=== PATIENT | female | born 1970 | race Caucasian/White ===

== ENCOUNTER 2016-12-28 12:05 | Emergency (ER) | payer OTHER ==
[2016-12-28 12:18] VITALS: BP 112/65
--- NOTE | 2016-12-28 14:55 | RAD ---
INDICATION: Back and left leg pain progressively worse. COMPARISON: There are no prior studies available for comparison. TECHNIQUE: 5 views of the lumbar spine were obtained including lateral, oblique, AP and a coned-down lateral view of the lumbar sacral junction. FINDINGS: The vertebra are in normal alignment. No fracture is seen. There is mild disc space narrowing and endplate spurring present at the L2-L3 and L3-L4 levels. There is a single surgical clip which projects over the pelvis on the right side. IMPRESSION: MILD DEGENERATIVE DISC DISEASE. IF THE PATIENT'S SYMPTOMS PERSIST CONSIDER MR IMAGING.
--- NOTE | 2017-01-18 12:57 | UC ---
Nando Mo Aidan, scribed for Yara Goff MD on 12/28/16 at 1408 . Back Pain HPI - HPI Summary HPI Summary: 46 y/o female presents to the Urgent Care with a complaint of Left posterior hip pain, radiating down back of left buttock and left leg. Worse stretching or bending over. No unexplained weakness, p/d. 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 Does c/o ongoing and recently progressively worse midlow and middle back pain. Has had pain since approx 14 yrs ago. Pt denies any urinary symptoms. No hematuria. No bowell issues. No sob / cp / palpitations. No fever / chills. - History of Current Complaint Chief Complaint: UCLowerExtremity Stated Complaint: LEG PAIN Hx Obtained From: Patient Hx Last Menstrual Period: 12/25/17 ?: No Onset/Duration: Sudden Onset, Lasting Days, Still Present Timing: Constant Severity Initially: Moderate Severity Currently: Moderate Pain Intensity: 7 Pain Scale Used: 0-10 Numeric Back Pain: Is Discrete @ - lower back and lower extremities bilaterally Character: Aching - constant "jose horse" Aggravating: Movement Alleviating: Nothing - unknown Associated Signs And Symptoms: Positive: Other - flare up of psoriasis, right flank pain Related History: Previous Back Injury - Pt has had chronic back pain for 14 years since she had her child - Risk Factors TAD Risk Factors: Smoking - former smoker - Allergies/Home Medications Allergies/Adverse Reactions: Allergies Allergy/AdvReac Type Severity Reaction Status Date / Time Iohexol Allergy Mild Itching Verified 04/05/16 19:44 PMH/Surg Hx/FS Hx/Imm Hx - Additional Past Medical History Additional PMH: Hx of chronic back pain Previously Healthy: No - see hpi - Surgical History Surgical History: Yes Surgery Procedure, Year, and Place: 2006- tubal ligation; Hernia repair; abdominal mesh repair - Family History Known Family History: Positive: Hypertension - Social History Occupation: Employed Full-time Lives: With Family Alcohol Use: Occasionally Substance Use Type: None Smoking Status (MU): Former Smoker Type: Cigarettes Length of Time of Smoking/Using Tobacco: quit 20 years ago Household Exposure Type: Cigarettes Review of Systems Constitutional: Negative Skin: Other - "flare-up" of psoriasis Eyes: Negative ENT: Negative Respiratory: Negative Cardiovascular: Negative Gastrointestinal: Negative Genitourinary: Negative Motor: Negative Neurovascular: Other - see hpi Musculoskeletal: Arthralgia - see hpi, Myalgia Neurological: Negative Psychological: Negative All Other Systems Reviewed And Are Negative: Yes Physical Exam Triage Information Reviewed: Yes Appearance: Well-Nourished Vital Signs: Initial Vital Signs Temp 98.6 F 12/28/16 12:14 Pulse 78 12/28/16 12:14 Resp 18 12/28/16 12:14 BP 112/65 12/28/16 12:14 Pulse Ox 98 12/28/16 12:14 Vital Signs Reviewed: Yes Eye Exam: Normal ENT Exam: Normal ENT: Positive: Normal ENT inspection Neck exam: Normal Neck: Positive: Supple Respiratory Exam: Normal, Other - regular rate, no dyspnea, no tachypnea Respiratory: Positive: Chest non-tender, Lungs clear, Normal breath sounds, No respiratory distress, No accessory muscle use Cardiovascular Exam: Normal, Other - normal rate, good general skin color, good capillary refill Cardiovascular: Positive: RRR, No Murmur, Pulses Normal, Brisk Capillary Refill Abdominal Exam: Normal Abdomen Description: Positive: Nontender, No Organomegaly, Soft Bowel Sounds: Positive: Present Musculoskeletal Exam: Normal Musculoskeletal: Positive: Strength Intact, Other: - diffuse low back tenderness , tender left buttock, nodules of the DIP Neurological Exam: Other - nonfocal, grossly intact Psychological Exam: Normal Skin Exam: Normal, Other - no visible or reported rash Back Pain Course/Dx - Course Course Of Treatment: Urine dip - nad. ucg - neg. Considered below diff dx's. S/sx c/w acute on chronic low back pain with Left sciatic sx. Plans to f/u with a new pcp, hopefully in the next few weeks. Nodules on fingers and flareup of psoriasis is concerning. She denies hx or direct fam hx of know autoimmune issues. She is aware of the importance of f/u pcp. Will seek medical attention for worse or new problems in the meantime. Reviewed xray report with pt.,. Questions answered as posed to the best of my ability. - Differential Dx/Diagnosis Provider Diagnoses: acute on chronic low back pain. Left sciatica. Psoriasis Discharge - Discharge Plan Condition: Stable Disposition: HOME Prescriptions: Cyclobenzaprine TAB* [Flexeril 10 MG TAB*] 10 mg PO BID PRN #30 tab PRN Reason: spasm Halobetasol Propionate [Ultravate] 0.05 % EX BID PRN #1 tube PRN Reason: Rash Naproxen TAB* [Naprosyn 250 mg TAB*] 500 mg PO Q12H PRN #40 tab PRN Reason: Pain Patient Education Materials: Sciatica (ED), Arthritis (ED) Forms: *Work Release Referrals: [facility] [place]] No Primary Care Phys,NOPCP [Primary Care Provider] - Additional Instructions: Follow up with a primary care physician, in the next 2 weeks if possible. Seek medical attention for worse or new problems in the meantime. The documentation as recorded by the Nando spain Aidan accurately reflects the service I personally performed and the decisions made by me, Yara Goff MD.
== END 2016-12-28 15:24 | disposition home or self-care (01) ==
LOC: UCEAST 12:05
DX: M54.42 Lumbago with sciatica, left side (principal); G89.29 Other chronic pain; Z87.891 Personal history of nicotine dependence
CPT/HCPCS: 72110; 81003; 84702; 99212; G0463

== ENCOUNTER 2017-02-04 08:59 | Emergency (ER) | payer OTHER ==
[2017-02-04 09:06] VITALS: BP 113/50
[2017-02-04] MEDS ORDERED: Phenazopyridine TAB* 100 MG PO ONE (11:16)
--- NOTE | 2017-02-06 09:47 | UC ---
Progress - Progress Note Progress Note: PLS CALL PT. NOTIFY THAT VAGINAL SWAB IS POSITIVE FOR BV. METRONIDAZOLE ERX SENT TO [facility]. NO ETOH WHILE ON THIS MEDICATION. - YASMIN VALENZUELA MD
--- NOTE | 2017-02-09 06:26 | UC ---
Complaint Female HPI - HPI Summary HPI Summary: Pain around urethra began last night - History Of Current Complaint Chief Complaint: UCGU Stated Complaint: PERSONAL Time Seen by Provider: 02/04/17 10:31 Hx Obtained From: Patient Hx Last Menstrual Period: 01/06/17 ?: No Onset/Duration: Sudden Onset, Lasting Days - 1, Still Present Timing: Constant Severity Initially: Moderate Severity Currently: Moderate Pain Intensity: 5 Pain Scale Used: 0-10 Numeric Character: Burning Aggravating Factor(s): Movement, Urination Alleviating Factor(s): Nothing Associated Signs And Symptoms: Positive: Negative - Allergies/Home Medications Allergies/Adverse Reactions: Allergies Allergy/AdvReac Type Severity Reaction Status Date / Time Iohexol Allergy Mild Itching Verified 04/05/16 19:44 PMH/Surg Hx/FS Hx/Imm Hx Previously Healthy: No Respiratory History: Asthma - Surgical History Surgical History: Yes Surgery Procedure, Year, and Place: 2006- tubal ligation; Hernia repair; abdominal mesh repair - Family History Known Family History: Positive: Hypertension - Social History Occupation: Employed Full-time Lives: With Family Alcohol Use: None Substance Use Type: None Smoking Status (MU): Former Smoker Type: Cigarettes Length of Time of Smoking/Using Tobacco: quit 20 years ago Household Exposure Type: Cigarettes Review of Systems Constitutional: Negative Skin: Negative Eyes: Negative ENT: Negative Respiratory: Negative Cardiovascular: Negative Gastrointestinal: Negative Genitourinary: Dysuria Motor: Negative Neurovascular: Negative Musculoskeletal: Negative Neurological: Negative Psychological: Negative All Other Systems Reviewed And Are Negative: Yes Physical Exam Triage Information Reviewed: Yes Appearance: Well-Appearing, No Pain Distress, Well-Nourished Vital Signs: Initial Vital Signs Temp 99.7 F 02/04/17 09:03 Pulse 67 02/04/17 09:03 Resp 18 02/04/17 09:03 BP 113/50 02/04/17 09:03 Pulse Ox 99 02/04/17 09:03 Vital Signs Reviewed: Yes Eye Exam: Normal Eyes: Positive: Conjunctiva Clear ENT Exam: Normal ENT: Positive: Normal ENT inspection, Hearing grossly normal. Negative: Trismus , Muffled/hoarse voice Dental Exam: Normal Neck exam: Normal Neck: Positive: Supple, Nontender Respiratory Exam: Normal Respiratory: Positive: Chest non-tender, Normal breath sounds, No respiratory distress Cardiovascular Exam: Normal Cardiovascular: Positive: RRR, Pulses Normal, Brisk Capillary Refill Abdominal Exam: Normal Abdomen Description: Positive: Nontender, No Organomegaly, Soft Bowel Sounds: Positive: Present Musculoskeletal Exam: Normal Musculoskeletal: Positive: Strength Intact, ROM Intact, No Edema Neurological Exam: Normal Neurological: Positive: Alert, Muscle Tone Normal Psychological Exam: Normal Psychological: Positive: Normal Response To Family Skin Exam: Normal UC Physical Exam Vital Signs On Initial Exam: Initial Vitals Temp Pulse Resp BP Pulse Ox 99.7 F 67 18 113/50 99 02/04/17 09:03 02/04/17 09:03 02/04/17 09:03 02/04/17 09:03 02/04/17 09:03 - Genitalia Exam Female Genitourinary: Normal External Exam, Normal Vaginal Exam Diagnostics - Laboratory Diagnostic Studies Completed/Ordered: urine culture, affirm and appitma swabs sent to lab Complaint Female Dx - Course Course Of Treatment: Begin Macrobid and pyridium , send swabs as ordered follow with pcp - Differential Dx/Diagnosis Differential Diagnosis/HQI/PQRI: Ovarian Cyst, Pelvic Inflammatory Disease, Sexually Transmitted Disease, Ureteral Stone, Urinary Tract Infection Provider Diagnoses: Dysuria Discharge - Discharge Plan Condition: Stable Disposition: HOME Prescriptions: Metronidazole [Flagyl 500 MG TAB] 500 mg PO BID #14 tab Nitrofurantoin Monohyd Macro [Macrobid] 100 mg PO BID #20 cap Phenazopyridine TAB* [Pyridium 100 mg TAB*] 100 mg PO TID PRN #6 tab PRN Reason: urinary pain Patient Education Materials: Phenazopyridine (By mouth), Urinary Tract Infection in Women (ED) Referrals: [facility] [place] [facility] [Outside] - If Needed
== END 2017-02-04 11:32 | disposition home or self-care (01) ==
LOC: UCEAST 08:59
DX: N76.0 Acute vaginitis (principal); R30.0 Dysuria; Z32.02 Encounter for pregnancy test, result negative; J45.909 Unspecified asthma, uncomplicated; Z91.041 Radiographic dye allergy status; Z87.891 Personal history of nicotine dependence
CPT/HCPCS: 81003; 84702; 87077; 87086; 87186; 87480; 87491; 87510; 87591; 87661; 99212; A9270-GY; G0463

== ENCOUNTER 2017-03-22 20:45 | Emergency (ER) | payer OTHER ==
[2017-03-22 21:57] VITALS: BP 126/74
[2017-03-22] MEDS ORDERED: Amoxicillin PO (*) 500 MG CAP PO ONE (22:45)
[2017-03-22] MEDS ORDERED: Albuterol 2.5 MG/3 ML NEB.SOL* (0.083%) INH ONE (22:45)
[2017-03-22] MEDS ORDERED: predniSONE TAB* 20 MG PO ONE (22:45)
[2017-03-22] MEDS ORDERED: Ipratropium 0.5MG/2.5ML NEB* 0.5 MG/2.5 ML NEB.SOLN INH ONE (22:45)
[2017-03-22] MEDS ORDERED: Albuterol HFA INHALER* 8 gm MDI INH ONE (22:47)
--- NOTE | 2017-03-22 22:55 | UC ---
Respiratory Complaint HPI - HPI Summary HPI Summary: 46 yo female with cough and wheezing x hours hx asthma - History of Current Complaint Chief Complaint: UCGeneralIllness Stated Complaint: RESP COMPLAINT Time Seen by Provider: 03/22/17 22:38 Hx Obtained From: Patient Hx Last Menstrual Period: 03/18/17, tubal Onset/Duration: Gradual Onset, Lasting Hours Timing: Constant Severity Initially: Moderate Severity Currently: Moderate Pain Intensity: 3 Pain Scale Used: 0-10 Numeric Character: Cough: Nonproductive Aggravating Factors: Deep Breaths Alleviating Factors: Nothing Associated Signs And Symptoms: Positive: Wheezing - Allergies/Home Medications Allergies/Adverse Reactions: Allergies Allergy/AdvReac Type Severity Reaction Status Date / Time Iohexol Allergy Mild Itching Verified 03/22/17 21:57 PMH/Surg Hx/FS Hx/Imm Hx Previously Healthy: Yes Respiratory History: Asthma, Bronchitis - Surgical History Surgical History: Yes Surgery Procedure, Year, and Place: 2006- tubal ligation. Hernia repair. abdominal mesh repair - Family History Known Family History: Positive: Hypertension, Respiratory Disease - Social History Alcohol Use: Occasionally Substance Use Type: None Smoking Status (MU): Former Smoker Type: Cigarettes Length of Time of Smoking/Using Tobacco: quit 20 years ago Household Exposure Type: Cigarettes Review of Systems Constitutional: Chills Skin: Negative Eyes: Negative ENT: Sore Throat Respiratory: Cough Cardiovascular: Negative Gastrointestinal: Negative Genitourinary: Negative Motor: Negative Neurovascular: Negative Musculoskeletal: Negative Neurological: Negative Psychological: Negative Is Patient Immunocompromised?: No All Other Systems Reviewed And Are Negative: Yes Physical Exam Triage Information Reviewed: Yes Appearance: Well-Appearing, No Pain Distress, Well-Nourished Vital Signs: Initial Vital Signs Temp 99.0 F 03/22/17 21:52 Pulse 90 03/22/17 21:52 Resp 18 03/22/17 21:52 BP 126/74 03/22/17 21:52 Pulse Ox 100 03/22/17 21:52 Vital Signs Reviewed: Yes Eyes: Positive: Conjunctiva Clear ENT: Positive: Hearing grossly normal, Pharyngeal erythema. Negative: Nasal congestion, Nasal drainage, Tonsillar exudate, Trismus, Muffled/hoarse voice Neck: Positive: Supple, Nontender Respiratory: Positive: No respiratory distress, No accessory muscle use, Wheezing Cardiovascular: Positive: RRR, No Murmur Musculoskeletal: Positive: ROM Intact, No Edema Neurological Exam: Normal Neurological: Positive: Alert Psychological: Positive: Normal Response To Family Skin Exam: Normal UC Diagnostic Evaluation - Laboratory O2 Sat by Pulse Oximetry: 100 - normal/not hypoxic Re-Evaluation - Re-Evaluation First Eval Re-Evaluation Time: 23:32 Change: Improved - subjectivelhy much better/lungs CTA Respiratory Course/Dx - Differential Dx/Diagnosis Provider Diagnoses: acute bronchitis with bronchospasm Discharge - Discharge Plan Condition: Stable Disposition: HOME Prescriptions: Amoxicillin PO (*) [Amoxicillin 875 MG (*)] 875 mg PO BID #14 tab Halobetasol Propionate [Ultravate] 0.05 % EX BID PRN #50 cre PRN Reason: Rash Prednisone [Deltasone] 40 mg PO DAILY #10 tab Patient Education Materials: Acute Bronchitis (ED) Forms: *Work Release Referrals: No Primary Care Phys,NOPCP [Primary Care Provider] -
== END 2017-03-22 23:45 | disposition home or self-care (01) ==
LOC: UCEAST 20:45
DX: J20.9 Acute bronchitis, unspecified (principal); Z87.891 Personal history of nicotine dependence
CPT/HCPCS: 99213; A9270-GY; G0463; J7512; J7644

== ENCOUNTER 2017-03-23 23:11 | Emergency (ER) | payer OTHER ==
[2017-03-24] MEDS ORDERED: Albuterol/Ipratropium NEB.SOL* Albuterol 2.5 MG/Ipratropium 0.5 MG 3 ML INH ONE (01:10)
[2017-03-24] MEDS ORDERED: Azithromycin TAB* 250 MG PO ONE (01:10)
[2017-03-24] MEDS ORDERED: predniSONE TAB* 20 MG PO ONE (01:10)
--- NOTE | 2017-03-24 02:35 | ED ---
Seth Mo Benjamin, scribed for Bess Reed MD on 03/24/17 at 0103 . Shortness of Breath - HPI Summary HPI Summary: 46yo female c/o URI like symptoms since Tuesday, cough and runny nose. Since Tuesday pt started having chest tightness. Pt was seen at on Tuesday night and received a breathing tx, which helped her symptoms. Pt was dxed with bronchitis. Pt returns today as her symptoms are back and now worse. Hx of asthma and bronchitis. FHx of Asthma. No Other significant PMHX or FHX. Pt took 40mg prednisone on Tuesday. - History of Current Complaint Chief Complaint: EDShortnessOfBreath Time Seen by Provider: 03/24/17 00:28 Hx Obtained From: Patient Onset/Duration: Gradual Onset, Lasting Days, Still Present, Worse Since Timing: Constant Current Severity: Moderate Dyspnea At: Rest Aggrevating Factors: Nothing Alleviating Factors: Bronchodilators - breathing tx Associated Signs & Symptoms: Cough (Nonproductive), Nasal Congestion - Allergy/Home Medications Allergies/Adverse Reactions: Allergies Allergy/AdvReac Type Severity Reaction Status Date / Time Iohexol Allergy Mild Itching Verified 03/23/17 23:17 PMH/Surg Hx/FS Hx/Imm Hx Endocrine/Hematology History: Denies: Hx Diabetes, Hx Thyroid Disease Cardiovascular History: Denies: Hx Hypertension Respiratory History: Reports: Hx Asthma Denies: Hx Chronic Obstructive Pulmonary Disease (COPD) GI History: Denies: Hx Ulcer Musculoskeletal History: Denies: Hx Scoliosis Neurological History: Denies: Hx Headaches, Other Neuro Impairments/Disorders - Surgical History Surgery Procedure, Year, and Place: 2006- tubal ligation. Hernia repair. abdominal mesh repair Infectious Disease History: No Infectious Disease History: Denies: Hx Clostridium Difficile, Hx Hepatitis, Hx Human Immunodeficiency Virus (HIV), Hx Shingles, Hx Tuberculosis, Hx Known/Suspected VRE, Hx Known/ Suspected VRSA, History Other Infectious Disease, Traveled Outside the [place] in Last 30 Days - Family History Known Family History: Positive: Hypertension, Respiratory Disease - asthma - Social History Occupation: Employed Full-time Lives: With Family Alcohol Use: Occasionally Substance Use Type: Reports: None Smoking Status (MU): Former Smoker Type: Cigarettes Length of Time of Smoking/Using Tobacco: quit 20 years ago Review of Systems Constitutional: Negative Eyes: Negative Positive: Nasal Discharge Cardiovascular: Negative Positive: Shortness Of Breath, Cough, Other - chest congestion Gastrointestinal: Negative Genitourinary: Negative Musculoskeletal: Negative Skin: Negative Neurological: Negative Psychological: Normal All Other Systems Reviewed And Are Negative: Yes Physical Exam Triage Information Reviewed: Yes Vital Signs On Initial Exam: Initial Vitals Temp Pulse Resp BP Pulse Ox 97.7 F 81 16 154/70 100 03/23/17 23:14 03/23/17 23:14 03/23/17 23:14 03/23/17 23:14 03/23/17 23:14 Vital Signs Reviewed: Yes Appearance: Positive: Well-Appearing, No Pain Distress, Well-Nourished Skin: Positive: Warm, Skin Color Reflects Adequate Perfusion, Dry Head/Face: Positive: Normal Head/Face Inspection Eyes: Positive: Normal, EOMI, ERASMO, Conjunctiva Clear ENT: Positive: Normal ENT inspection, Hearing grossly normal Neck: Positive: Supple, Nontender Respiratory/Lung Sounds: Positive: Clear to Auscultation, Breath Sounds Present , Other - pt is coughing, otherwise normal respiratory exam Cardiovascular: Positive: RRR, Pulses are Symmetrical in both Upper and Lower Extremities Abdomen Description: Positive: Nontender, Soft Bowel Sounds: Positive: Present Musculoskeletal: Positive: Strength/ROM Intact Neurological: Positive: Sensory/Motor Intact, Alert, Oriented to Person Place, Time Psychiatric: Positive: Affect/Mood Appropriate - Axel Coma Scale Coma Scale Total: 15 Diagnostics - Vital Signs Vital Signs Temp Pulse Resp BP Pulse Ox 03/23/17 23:17 97.7 F 81 16 154/70 100 03/23/17 23:14 97.7 F 81 16 154/70 100 - Laboratory Lab Statement: Any lab studies that have been ordered have been reviewed, and results considered in the medical decision making process. - Radiology CXR Xray Interpretation: No Acute Changes Radiology Interpretation Completed By: ED Physician Re-Evaluation - Re-Evaluation First Eval Re-Evaluation Time: 02:20 Comment: Reviewed pts lab and imaging results with the pt. Also discussed course of treatment and disposition, as well as follow up plans. Pt states feeling better when rechecked. Pt asks for a work note. Course/Dx - Course Course Of Treatment: Reviewed pts medication and allergy lists. High blood pressure noted. pt very clear no PE risk factors and no NE risk factors, here with worsening upper respiratory symptoms she got a late start to getting her med[facility] and had increased tightness in her chest tonight. her vs are stable, cxr is normal, she is much better after a neb here and as she ahd only taken 20 mg of her prednisone so 40 more was given here and she was switched from amox to azithromycin - Diagnoses Provider Diagnoses: Reactive airway disease, Bronchitis Discharge - Discharge Plan Condition: Stable Disposition: HOME Prescriptions: Azithromycin TAB* [Zithromax TAB (Z-GABRIELLA) 250 mg #6 tabs] 250 mg PO DAILY #4 tab Patient Education Materials: Acute Bronchitis (ED) Forms: *Work Release Referrals: No Primary Care Phys,NOPCP [Primary Care Provider] - The documentation as recorded by the Seth spain Benjamin accurately reflects the service I personally performed and the decisions made by me, Bess Reed MD.
[2017-03-24 02:40] VITALS: BP 140/78
--- NOTE | 2017-03-24 08:04 | RAD ---
INDICATION: Cough. COMPARISON: There are no prior studies available for comparison. TECHNIQUE: Dual-energy PA and lateral views of the chest were obtained. FINDINGS: The heart is within normal limits in size. Mediastinal and hilar contours appear within normal limits. The lungs are clear. No pleural effusion is present. IMPRESSION: NO EVIDENCE FOR ACTIVE CARDIOPULMONARY DISEASE.
== END 2017-03-24 02:39 | disposition home or self-care (01) ==
LOC: ED 23:11
DX: J45.909 Unspecified asthma, uncomplicated (principal); R05 Cough; J06.9 Acute upper respiratory infection, unspecified; R09.81 Nasal congestion; R06.02 Shortness of breath; Z87.891 Personal history of nicotine dependence
CPT/HCPCS: 71020; 99282; A9270-GY; J7512

== ENCOUNTER 2017-07-10 12:11 | Emergency (ER) | payer BC, OTHER ==
[2017-07-10 12:43] VITALS: BP 134/66
--- NOTE | 2017-07-10 14:03 | UC ---
Respiratory Complaint HPI - HPI Summary HPI Summary: Patient presents to the with CC of congestion, cough, sore throat, nasal discharge, ear pain, dental pain, sinus fullness, sweats and chills. Denies health problems. States she had bronchitis 3 weeks ago, given prednisone and improved. Now back and worse. Has been using dayquil and nyquil. Denies N/V/C /D. Endorses sensitivity to light. - History of Current Complaint Chief Complaint: UCGeneralIllness Stated Complaint: SORE THROAT, EAR ACHE, AND SINUS CONGESTION Time Seen by Provider: 07/10/17 12:36 Hx Obtained From: Patient Hx Last Menstrual Period: currently Timing: Constant Severity Initially: Mild Severity Currently: Mild Pain Intensity: 5 Pain Scale Used: 0-10 Numeric Character: Cough: Productive Aggravating Factors: Deep Breaths, Recumbent Position Alleviating Factors: Upright Position Associated Signs And Symptoms: Positive: URI, Nasal Congestion, Hoarseness, Sinus Discomfort - Risk Factors Pulmonary Embolism Risk Factors: Negative Cardiac Risk Factors: Negative Pseudomonas Risk Factors: Negative Tuberculosis Risk Factors: Negative - Allergies/Home Medications Allergies/Adverse Reactions: Allergies Allergy/AdvReac Type Severity Reaction Status Date / Time Iohexol Allergy Mild Itching Verified 07/10/17 12:43 Home Medications: Home Medications Multiple Vitamin [Multivitamins] 1 cap PO DAILY 07/10/17 [History Confirmed ] PMH/Surg Hx/FS Hx/Imm Hx Previously Healthy: Yes - Surgical History Surgical History: Yes Surgery Procedure, Year, and Place: 2006- tubal ligation. Hernia repair. abdominal mesh repair - Family History Known Family History: Positive: Hypertension, Respiratory Disease - asthma - Social History Occupation: Employed Full-time Lives: With Family Alcohol Use: Occasionally Substance Use Type: None Smoking Status (MU): Former Smoker Type: Cigarettes Length of Time of Smoking/Using Tobacco: quit 20 years ago Household Exposure Type: Cigarettes - Immunization History Most Recent Influenza Vaccination: 2017 Review of Systems Constitutional: Negative Skin: Negative Respiratory: Shortness Of Breath, Cough Cardiovascular: Negative Genitourinary: Negative Motor: Negative Musculoskeletal: Negative Neurological: Negative Is Patient Immunocompromised?: No All Other Systems Reviewed And Are Negative: Yes Physical Exam Triage Information Reviewed: Yes Appearance: Ill-Appearing Vital Signs: Initial Vital Signs Temp 97.8 F 07/10/17 12:40 Pulse 71 07/10/17 12:40 Resp 22 07/10/17 12:40 BP 134/66 07/10/17 12:40 Pulse Ox 100 07/10/17 12:40 Vital Signs Reviewed: Yes Eye Exam: Normal Eyes: Positive: Conjunctiva Clear ENT: Positive: Hearing grossly normal, Pharynx normal, Nasal congestion, Nasal drainage, TMs normal, Hoarse voice, Dental tenderness, Sinus tenderness, Uvula midline. Negative: Pharyngeal erythema, TM bulging, TM dull, TM red, Tonsillar swelling, Tonsillar exudate, Trismus, Muffled voice Respiratory: Positive: Chest non-tender, Lungs clear Cardiovascular: Positive: RRR, No Murmur, Pulses Normal Musculoskeletal Exam: Normal Musculoskeletal: Positive: Strength Intact Neurological Exam: Normal Neurological: Positive: Alert Psychological: Positive: Age Appropriate Behavior Skin Exam: Normal UC Diagnostic Evaluation - Laboratory O2 Sat by Pulse Oximetry: 100 Respiratory Course/Dx - Course Course Of Treatment: Strep and flu negative. Lungs CTA. Patient has diffuse tenderness to the maxillary and frontal sinuses. She is given tessalon, robitussin with codeine, sudafed and augmentin for sinusitis. She has a co- occuring URI. She is OK with discharge and will return for worsening symptoms. - Differential Dx/Diagnosis Provider Diagnoses: URI; Sinusitis Discharge - Discharge Plan Condition: Stable Disposition: HOME Prescriptions: Amoxicillin/Clavulanate TAB* [Augmentin TAB 875*] 875 mg PO BID #14 tab Benzonatate CAP* [Tessalon CAP*] 100 mg PO TID #21 cap Guaifenesin-Codeine [Codeine/Guaifenesin 100-10 mg/5Ml] 10 ml PO BEDTIME PRN #1 zhen MDD 10 PRN Reason: Cough Pseudoephedrine HCl [Sudafed 24 Hour] 240 mg PO DAILY #10 tab Patient Education Materials: Sinusitis (ED), Upper Respiratory Infection (ED) Referrals: No Primary Care Phys,NOPCP [Primary Care Provider] - Additional Instructions: Sudafed once daily as needed for congestion Robitussin with codeine - 2 teaspoons at bedtime for cough Tessalon perles for cough - up to three times daily during the day Augmentin - once in the morning and once at night for 7 days Medication: Augmentin 875-mg tablet of AUGMENTIN every 12 hours or 10 days. To minimize the potential for gastrointestinal intolerance, AUGMENTIN should be taken at the start of a meal. If you have any questions about your medication, please contact us or ask your pharmacist. Humidifier in the home Hot tea, lemon and honey Rest
== END 2017-07-10 14:00 | disposition home or self-care (01) ==
LOC: UCEAST 12:11
DX: J01.90 Acute sinusitis, unspecified (principal); Z88.8 Allergy status to other drugs, medicaments and biological substances; Z87.891 Personal history of nicotine dependence
CPT/HCPCS: 87502; 87651; 99212; G0463

== ENCOUNTER 2017-08-16 07:17 | Day surgery (SDC) | payer MEDICAID ==
--- NOTE | 2017-08-12 19:15 | HP ---
PREOPERATIVE HISTORY AND PHYSICAL: DATE OF ADMISSION/SURGERY: 08/16/17 DATE OF OFFICE VISIT/ENCOUNTER: 08/11/17 ATTENDING SURGEON: Danna Justice MD * (DICTATED BY KWABENA MUJICA) PROCEDURE: Right thumb incision and drainage and removal of foreign body. CHIEF COMPLAINT: Foreign body, right thumb. HISTORY OF PRESENT ILLNESS: This is a 47-year-old female, who reports sustaining injury to her right thumb approximately a week ago. She was on the treadmill and dropped her cell phone and did not realize when she went to pick it up that the glass protective cover had shattered. When she went to grab it, she got a piece of glass in her right thumb. She is having marked irritability at the thumb MP flexion crease. She denies any numbness or tingling. She denies any loss of motion. She had x-rays taken of the thumb and they did not show any bony abnormality. The area where the foreign body is located is very bothersome to the patient and she would like to have it removed. She has consented to proceed with a right thumb incision and drainage and removal of the foreign body. PAST MEDICAL HISTORY: 1. Psoriasis. 2. Asthma. PAST SURGICAL HISTORY: 1. x3. 2. Hernia repair x2. 3. Tubal ligation. CURRENT MEDICATIONS: 1. Calcipotriene 0.005% applied to affected area p.r.n. 2. Multivitamin once daily. 3. Sulfasalazine 500 mg. 4. Vitamin D 5000 units weekly. 5. Inhaler. ALLERGIES: No known drug allergies. The patient has an allergy to CONTRAST DYE which causes hives. FAMILY MEDICAL HISTORY: Arthritis. SOCIAL HISTORY: The patient is unemployed currently. She denies tobacco use or recreational drug use. She does drink alcohol on occasion. REVIEW OF SYSTEMS: General: Negative for fevers, chills, or night sweats. No known anesthesia problems. HEENT: Negative for headache, lightheadedness, or syncopal episodes. Integumentary: Positive for psoriasis, lesions. Negative for abrasions or open wounds. Cardiothoracic: Negative for hypertension, chest pain, palpitations, or edema. Pulmonary: Negative for shortness of breath with exertion, chronic cough, or COPD. GI: Negative for nausea, vomiting, diarrhea, constipation, or GERD. : Negative for nocturia, urinary frequency, urgency, history of UTIs, or kidney problems. Musculoskeletal: Positive for current complaint. Negative for chronic or intermittent back pain or history of fractures. Neurological: Negative for paresthesias, numbness, history of seizures, stroke, or epilepsy. Endocrine: Negative for diabetes and thyroid issues. Hematologic: Negative for easy bruising, anemia, excessive bleeding, or history of DVT. Infectious Disease: Negative for history of MRSA, hepatitis C, or HIV. PHYSICAL EXAMINATION GENERAL: Well-developed, well-nourished, 47-year-old female in no acute distress. VITAL SIGNS: Height is 4 feet 9 inches, weight 167 pounds. Pulse rate 70, blood pressure 108/70. HEENT: Normocephalic, atraumatic. Pupils are equal, round, and reactive to light and accommodation. Extraocular movements are intact. NECK: Supple. No palpable lymph nodes. Throat is clear. PULMONARY: Lungs are clear to auscultation bilaterally. No wheezes, rales, or rhonchi. CARDIOVASCULAR: Regular rate and rhythm. S1 and S2. No murmurs, rubs, or gallops. No edema. ABDOMEN: Positive bowel sounds, soft, nontender. NEUROLOGIC: Alert and oriented x3. Cranial nerves II through XII are intact. Sensation is intact to light touch. MUSCULOSKELETAL: On exam of her right thumb, she has a very tender and palpable subcutaneous foreign body at the IP flexion crease of the thumb. She has intact neurovascular function. Skin is intact. The IP crease has healed over. IMAGING STUDIES: X-ray, AP, lateral, and oblique of the right thumb appear normal. There are some degenerative changes at the DIP joint of her little finger. IMPRESSION: Foreign body, right thumb. PLAN: The patient is scheduled to undergo a right thumb incision and drainage and removal of foreign body with Dr. Justice on 08/16/17. She will return to the office 10 to 14 days postop for followup and suture removal. A prescription for tramadol was e-scribed to the patient's pharmacy for postoperative pain management. KWABENA MUJICA [id number]/[facility] #: [id number] [facility]OSPITALAllyson
[~2017-08-16 07:17] MED LIST: Buffered Lidocaine 0.9% SYRIN* 5 ML/SYR SYRINGE INTRADERM ONE; Dexamethasone IV* 4 MG/ML 1 ML (4 MG) IV SLOW PU ONE; Famotidine IV* 10 MG/ML 2 ML (20 mg) IV ONE
[2017-08-16] MEDS ORDERED: Famotidine IV* 10 MG/ML 2 ML (20 mg) ONE ×2 (07:32)
[2017-08-16] MEDS ORDERED: Dexamethasone IV* 4 MG/ML 1 ML (4 MG) ONE ×2 (07:32)
[2017-08-16] MEDS ORDERED: Lidocaine 1% INJ* 10 MG/ML 30 ML SDV ONE ×2 (08:08)
[2017-08-16] MEDS ORDERED: Naloxone* 0.4 MG/ML 1 ML VIAL IV PRN (08:14)
[2017-08-16] MEDS ORDERED: fentaNYL* 50 MCG/ML 2 ML VIAL (100 MCG VIAL) ONE ×2 (08:17)
[2017-08-16] MEDS ORDERED: Midazolam* 1 MG/ML 2 ML VIAL (2 MG) ONE ×2 (08:17)
[2017-08-16] MEDS ORDERED: Ketorolac INJ* 30 MG/ML 1 ML VIAL ONE ×2 (08:17)
[2017-08-16] MEDS ORDERED: Propofol* 10 MG/ML 20 ML BTL IV PUSH ONE ×2 (08:17)
[2017-08-16] MEDS ORDERED: Ondansetron INJ* 2 MG/ML VIAL ONE ×2 (08:17)
[2017-08-16 09:35] VITALS: BP 153/88
--- NOTE | 2017-08-16 21:19 | OP ---
DATE OF OPERATION: 08/16/17 [facility] DATE OF : 74 SURGEON: Danna Justice MD [employer] RENTAL CLERK: KWABENA Ulloa ANESTHESIA: Local MAC. PRE-OP DIAGNOSIS: Foreign body in the right thumb. POST-OP DIAGNOSIS: Painful scar of the right thumb. OPERATIVE PROCEDURE: Right thumb exploration and irrigation. ESTIMATED BLOOD LOSS: Zero. TOURNIQUET TIME: About 10 minutes. INDICATION FOR PROCEDURE: Rita is a 47-year-old female who broke her cellphone and had puncture wound with some broken glass from the screen of the cellphone. She has a persistent very sensitive area at the IP flexion crease of her right thumb. She presents for wound exploration and foreign body removal. DESCRIPTION OF PROCEDURE: The patient was brought to the operating room and was given a sedation anesthetic and a digital block with 10 cc of 1% plain lidocaine. The skin of the right upper extremity was prepped and draped in the usual sterile fashion. The hand and forearm were exsanguinated and the tourniquet elevated to 250 mmHg. A longitudinal incision was made over the tender area of the skin and over what appeared to be a sealed puncture wound. After exploring, I did not find any glass foreign body. The wound was copiously irrigated with saline. There was still felt to be a small prominence in the area of tenderness, so portion of the skin was removed presuming that the glass foreign body was in the epidermis. The wound was again irrigated and the skin edges were reapproximated with 4-0 nylon sutures. The wound was dressed with Xeroform, 4x4, Webril and Coban. The patient tolerated the procedure well and brought to the recovery room in good condition. [id number]/[facility] #: [id number] [facility]
== END 2017-08-16 09:56 | disposition home or self-care (01) ==
LOC: OREAST 07:17
PROVIDERS: ATTEND Orthopaedic Surgery
DX: S61.041A Puncture wound with foreign body of right thumb without damage to nail, initial encounter (principal); J45.909 Unspecified asthma, uncomplicated; W25.XXXA Contact with sharp glass, initial encounter; Y92.9 Unspecified place or not applicable
CPT/HCPCS: 88304; J1100; J1885; J2250; J2405; J2704; J3010

== ENCOUNTER 2017-12-09 13:37 | Emergency (ER) | payer OTHER ==
[2017-12-09 13:52] VITALS: BP 142/91
--- NOTE | 2017-12-09 14:18 | UC ---
Allergic Reaction HPI - HPI Summary HPI Summary: Patient is a 47-year-old female presenting to the with chief complaint of facial swelling, burning, erythema and tingling to the lips. She states she is allergic to spiders and sustained a small spider bite to the upper left eyelid 2 days ago [place] the [place]. She denies any pain, tingling or itching to the eyelid and there is no obvious signs of trauma however she states this happened in the past in her face swollen up similar to how it looks/feels now. Denies any fevers, sweats, chills. [place] and warm water to the face aggravates the symptoms. Denies any throat pain, difficulty swallowing, pain with swallowing. She is otherwise healthy and denies any other known allergies. She has been taking Benadryl without relief of symptoms. - History of Current Complaint Chief Complaint: UCAllergicReaction Stated Complaint: SWOLLEN FACE Time Seen by Provider: 12/09/17 13:54 Hx Obtained From: Patient Hx Last Menstrual Period: 12/09/17 ?: No Onset/Duration: Sudden Onset Severity Initially: Moderate Severity Currently: Moderate Pain Intensity: 0 Pain Scale Used: 0-10 Numeric Location: Discrete @ Character: Swelling Aggravating Factor(s): Cold, Nothing Alleviating Factor(s): Antihistamines Associated Signs And Symptoms: Positive: Negative - Related Hx Possible Reaction To: Insect - Allergies/Home Medications Allergies/Adverse Reactions: Allergies Allergy/AdvReac Type Severity Reaction Status Date / Time iohexol Allergy Itching Verified 12/09/17 13:41 Home Medications: Home Medications diphenhydrAMINE HCl [Benadryl Allergy 25 MG CAP] 25 mg PO Q6H PRN 12/09/17 [ History Confirmed 12/09/17] PMH/Surg Hx/FS Hx/Imm Hx Previously Healthy: Yes - Surgical History Surgical History: Yes Surgery Procedure, Year, and Place: 2006- tubal ligation. Hernia repair with mesh RIGHT INGUINAL [facility]. right hernia repair done in [facility] 2007? C SECTION X 3 1993, 2003 2005. TUBAL REMOVED [facility] - Family History Known Family History: Positive: Hypertension, Respiratory Disease - asthma - Social History Occupation: Employed Full-time Alcohol Use: Occasionally Alcohol Amount: 6 JOCE WEEKLY Substance Use Type: None Smoking Status (MU): Former Smoker Type: Cigarettes Length of Time of Smoking/Using Tobacco: quit 20 years ago When Did the Patient Quit Smoking/Using Tobacco: 1989 Household Exposure Type: Cigarettes - Immunization History Most Recent Influenza Vaccination: 2017 Review of Systems Constitutional: Negative Skin: Other - erythematous bilateral cheeks ENT: Negative Respiratory: Negative Motor: Negative Neurovascular: Negative Neurological: Negative Psychological: Negative Is Patient Immunocompromised?: No All Other Systems Reviewed And Are Negative: Yes Physical Exam Triage Information Reviewed: Yes Appearance: Well-Appearing, Well-Nourished Vital Signs: Initial Vital Signs Temp 98.2 F 12/09/17 13:49 Pulse 75 12/09/17 13:49 Resp 14 12/09/17 13:49 BP 142/91 12/09/17 13:49 Pulse Ox 100 12/09/17 13:49 Vital Signs Reviewed: Yes Eye Exam: Normal Eyes: Positive: Conjunctiva Clear Neck exam: Normal Neck: Positive: Supple Cardiovascular Exam: Normal Cardiovascular: Positive: RRR Neurological Exam: Normal Neurological: Positive: Alert Psychological Exam: Normal Psychological: Positive: Normal Response To Family Skin: Positive: Other - erythematous and warm bilateral cheeks Allergic Reaction Course/Dx - Course Course Of Treatment: Patient is evaluated for allergic reaction. Spider bite to the upper left eyelid 2 days ago, but no signs of this on physical exam. However, there is diffuse erythema to the bilateral cheeks with warmth and tingling to the lower lip. Denies any dysphagia or odynophagia. Airway is bender signs are on chart nt. She has been trying Benadryl [id number] without relief. She continues to eat and drink well. Denies any shortness of breath or chest pain. I have discussed the importance of taking both an H1 and H2 cassius as well as a steroid. I've advised against topical steroid to the face as this can cause some discolorations. Due to the somnolent side effects of Benadryl, I have encouraged her to take Atarax and Zyrtec. Also prednisone 50 mg once daily 5 days. She is okay with this plan and discharge. She understands to return for any shortness of breath or difficulty swallowing. - Differential Dx/Diagnosis Provider Diagnoses: Allergic reaction Discharge - Sign-Out/Discharge Documenting (check all that apply): Discharge/Admit/Transfer - Discharge Plan Condition: Stable Disposition: HOME Prescriptions: hydrOXYzine HCL TAB* [Atarax 25 MG TAB*] 25 mg PO TID PRN #12 tab PRN Reason: Itching predniSONE TAB* [Deltasone TAB*] 50 mg PO DAILY #5 tab Patient Education Materials: General Allergic Reaction (ED), Cold Compress or Soak (ED) Referrals: Duglas Ruiz MD [Primary Care Provider] - Additional Instructions: Please follow up with an rivet heater if you develop any worsening symptoms Prednisone once daily x 5 days Hydroxyzine up to three times daily for itching. Zyrtec OR Claritin once daily. You should be taking BOTH Hydroxyzine as well as zyrtec ot claritin. If you find more relief with benadryl - take benadryl instead of the hydroxyzine Cold compresses to the area several times daily Stay out of the sun - Billing Disposition and Condition Condition: STABLE Disposition: HOME
== END 2017-12-09 14:22 | disposition home or self-care (01) ==
LOC: UCEAST 13:37
DX: S00.262A Insect bite (nonvenomous) of left eyelid and periocular area, initial encounter (principal); W57.XXXA Bitten or stung by nonvenomous insect and other nonvenomous arthropods, initial encounter; Y93.9 Activity, unspecified; Y92.9 Unspecified place or not applicable; Z91.041 Radiographic dye allergy status; Z82.49 Family history of ischemic heart disease and other diseases of the circulatory system; Z82.5 Family history of asthma and other chronic lower respiratory diseases; Z87.891 Personal history of nicotine dependence
CPT/HCPCS: 99212; G0463

== ENCOUNTER 2018-01-31 06:02 | Day surgery (SDC) | payer OTHER ==
[~2018-01-31 06:02] MED LIST changes: +Bupivacaine 0.25% SDV PF* 10 ML VIAL INJ ONE; +Lidocain 1% EPI 1:100,000 * 30 ML MDV ONE
[2018-01-31] MEDS ORDERED: Famotidine IV* 10 MG/ML 2 ML (20 mg) ONE (06:10)
[2018-01-31] MEDS ORDERED: ceFAZolin 2 GM PREMIX (*) 2 GM/50 ML BAG IVPB ONE (06:10)
[2018-01-31] MEDS ORDERED: Scopolamine 1.5 mg* PATCH ONE (06:10)
[2018-01-31] MEDS ORDERED: Ondansetron INJ* 2 MG/ML VIAL ONE ×2 (06:10→07:20)
[2018-01-31] MEDS ORDERED: Dexamethasone IV* 4 MG/ML 1 ML (4 MG) ONE (06:10)
[2018-01-31] MEDS ORDERED: Levalbuterol 0.63MG/3ML NEB* UNIT OF USE INH ONE ×2 (07:06→07:08)
[2018-01-31] MEDS ORDERED: Propofol* 10 MG/ML 20 ML BTL IV PUSH ONE (07:20)
[2018-01-31] MEDS ORDERED: Atracurium* 10 MG/ML 10 ML VIAL ONE (07:20)
[2018-01-31] MEDS ORDERED: Midazolam* 1 MG/ML 5 ML VIAL (5 MG) ONE (07:20)
[2018-01-31] MEDS ORDERED: Lidocaine 2% PF * 5 ML VIAL ONE (07:20)
[2018-01-31] MEDS ORDERED: fentaNYL* 50 MCG/ML 5 ML VIAL (250 MCG VIAL) ONE (07:20)
[2018-01-31] MEDS ORDERED: DiMENhydriNATE IV* 50 MG/ML VIAL IV PUSH PRN (08:16)
[2018-01-31] MEDS ORDERED: oxyCODONE/Acetamin 5/325 MG* TAB PO PRN (08:16)
[2018-01-31] MEDS ORDERED: Naloxone* 0.4 MG/ML 1 ML VIAL IV PRN (08:16)
[2018-01-31] MEDS ORDERED: fentaNYL* 50 MCG/ML 2 ML VIAL (100 MCG VIAL) ONE ×2 (09:50→11:18)
[2018-01-31] MEDS: fentaNYL* 50 MCG/ML 2 ML VIAL (100 MCG VIAL) IV PRN ×2 (11:19→11:30)
[2018-01-31] MEDS ORDERED: HYDROmorphone INJ* 0.5 MG/0.5 ML SYRINGE ONE ×2 (11:36→11:47)
[2018-01-31] MEDS: HYDROmorphone INJ* 0.5 MG/0.5 ML SYRINGE IV PRN ×5 (11:36→12:12)
[2018-01-31] MEDS ORDERED: oxyCODONE/Acetamin 5/325 MG* TAB ONE (12:17)
[2018-01-31 12:47] VITALS: BP 136/74
[2018-01-31] MEDS ORDERED: DiMENhydriNATE IV* 50 MG/ML VIAL ONE (13:12)
[2018-01-31] MEDS ORDERED: Midazolam* 1 MG/ML 2 ML VIAL (2 MG) ONE (13:53)
== END 2018-01-31 13:50 | disposition home or self-care (01) ==
LOC: OR 06:02
PROVIDERS: ATTEND Plastic Surgery
DX: N62 Hypertrophy of breast (principal); M54.9 Dorsalgia, unspecified; M54.2 Cervicalgia; J45.909 Unspecified asthma, uncomplicated; L40.9 Psoriasis, unspecified
CPT/HCPCS: 88305; A9270-GY; A9272; J0690; J1100; J1170; J1240; J2250; J2405; J2704; J3010; J3490

== ENCOUNTER 2018-02-04 21:37 | Emergency (ER) | payer OTHER ==
[2018-02-04 21:50] VITALS: BP 114/54
--- NOTE | 2018-02-04 22:23 | UC ---
Abdominal Pain Female HPI - HPI Summary HPI Summary: SUDDEN ONSET OF LEFT SIDED ABDOMINAL PAIN AND LEFT LOW BACK PAIN YESTERDAY. DESCRIBED SHARP AND STABBING. IS HAVING A HARD TIME MOVING AND WALKING DUE TO THE DISCOMFORT. BREATHING QUICKLY. NO FEVER. NO URINARY SX. HAD BREAST REDUCTION SURGERY 01/31/18 BUT STATES THIS IS UNRELATED. - History of Current Complaint Chief Complaint: UCAbdominalPain Stated Complaint: STOMACH PAIN Time Seen by Provider: 02/04/18 21:47 Hx Obtained From: Patient Hx Last Menstrual Period: 12/09/17 Onset/Duration: Sudden Onset, Lasting Days - 1 DAY, Still Present Timing: Constant Severity Initially: Severe Severity Currently: Severe Pain Intensity: 10 Pain Scale Used: 0-10 Numeric Location: Discrete At: LLQ Radiates: Yes Radiates to: Flank Character: Sharp Aggravating Factor(s): Movement Alleviating Factor(s): Nothing Associated Signs and Symptoms: Positive: Back Pain. Negative: Diaphoresis, Fever, Constipation, Blood in Stool, Urinary Symptoms, Decreased Appetite, Nausea Allergies/Adverse Reactions: Allergies Allergy/AdvReac Type Severity Reaction Status Date / Time iohexol Allergy Itching Verified 02/04/18 21:50 Home Medications: Home Medications Hydrocodone/Acetaminophen [Hydrocodone/Acetaminophen 5-325 mg] 1 tab PO [History] Iron 90 mg PO 02/04/18 [History] PMH/Surg Hx/FS Hx/Imm Hx Respiratory History: Asthma - Surgical History Surgical History: Yes Surgery Procedure, Year, and Place: 2006- tubal ligation. 2009 Hernia repair with mesh RIGHT INGUINAL [facility]. 2007 right hernia repair [place]. C SECTION X 3 1993 , 2003 2005. breast reduction. TUBAL REMOVED [facility] - Family History Known Family History: Positive: Hypertension, Respiratory Disease - asthma - Social History Alcohol Use: Occasionally Alcohol Amount: 6 JOCE WEEKLY Substance Use Type: None Smoking Status (MU): Never Smoked Tobacco Type: Cigarettes Length of Time of Smoking/Using Tobacco: quit 20 years ago Have You Smoked in the Last Year: No When Did the Patient Quit Smoking/Using Tobacco: 1993 Household Exposure Type: Cigarettes - Immunization History Most Recent Influenza Vaccination: 2017 Review of Systems Constitutional: Negative Skin: Negative Respiratory: Negative Cardiovascular: Negative Gastrointestinal: Abdominal Pain Genitourinary: Negative All Other Systems Reviewed And Are Negative: Yes Physical Exam Triage Information Reviewed: Yes Appearance: Well-Nourished, Pain Distress - SEVERE. TAKING SHORT BREATHS DUE TO DISCOMFORT. MOVING VERY TENTATIVELY Vital Signs: Initial Vital Signs Temp 97.6 F 02/04/18 21:44 Pulse 83 02/04/18 21:44 Resp 18 02/04/18 21:44 BP 114/54 02/04/18 21:44 Pulse Ox 100 02/04/18 21:44 Laboratory Tests 02/04/18 22:23 POC Urine Color Yellow POC Urine Clarity Clear POC Urine pH 7.5 POC Ur Specif [place] 1.015 POC Urine Protein Negative POC Ur Glucose (UA) Negative POC Urine Ketones Negative POC Urine Blood Negative POC Urine Nitrite Negative POC Urine Bilirubin Negative POC Urine Urobilinogen 0.2 POC U Leukocyte Esteras Negative Vital Signs Reviewed: Yes Eyes: Positive: Conjunctiva Clear ENT: Positive: Hearing grossly normal Neck: Positive: Supple Respiratory Exam: Normal Cardiovascular Exam: Normal Abdomen Description: Positive: Soft, CVA Tenderness (L), Other: - EXQUISITELY TENDER LEFT ABDOMEN TO EVEN LIGHT PALPATION. Negative: CVA Tenderness (R), Distended Musculoskeletal: Positive: No Edema Neurological: Positive: Alert Psychological: Positive: Normal Response To Family, Age Appropriate Behavior Skin: Positive: Other - WOUND VAC IN PLACE FROM BREAST REDUCTION SURGERY. Negative: rashes Diagnostics - Laboratory Diagnostic Studies Completed/Ordered: URINE DIP UNREMARKABLE Abd Pain Female Course/Dx - Course Course Of Treatment: URINE UNREMARKABLE. PT IN SEVERE DISCOMFORT. PIV. TO [facility] BY AMBULANCE - Differential Dx/Diagnosis Provider Diagnoses: ABDOMINAL PAIN - Physician Notification/Consults Discussed Care of Patient With: Jaxon De Paz - TO [facility] BY AMBULANCE Time Discussed With Above Provider: 22:15 Instructed by Provider To: MD Will See In ED Discharge - Sign-Out/Discharge Documenting (check all that apply): Patient Departure - Discharge Plan Condition: Stable Disposition: TRANS HIGHER LVL OF CARE FAC Referrals: Duglas Ruiz MD [Primary Care Provider] - - Billing Disposition and Condition Condition: STABLE Disposition: Trans Higher Lvl of Care Fac
== END 2018-02-04 22:35 | disposition short-term general hospital (02) ==
LOC: UCEAST 21:37
DX: R10.9 Unspecified abdominal pain (principal); Z91.041 Radiographic dye allergy status; Z87.891 Personal history of nicotine dependence
CPT/HCPCS: 81003; 99203; G0463

== ENCOUNTER 2018-02-04 23:03 | Emergency (ER) | payer OTHER ==
[2018-02-04] MEDS ORDERED: Morphine VIAL* 4 MG/ML VIAL (1 ml vial) IV ONE (23:46)
[2018-02-04] MEDS ORDERED: NS 0.9% 1000 ML* 1,000 ML IV ONE (23:46)
[2018-02-04] MEDS ORDERED: Morphine VIAL* 10 MG/ML 1 ML VIAL ONE (23:53)
[2018-02-05 00:15] LABS: ABS Basophils 0.1 10^3/ul (0-0.2); ABS Eosinophils 0.2 10^3/ul (0-0.6); ABS Monocytes 0.7 10^3/ul (0-0.8); ABS Neutrophils 8.3 10^3/ul (1.5-7.7); ABS Nucleated RBC 0.1 10^3/ul; Eosinophil % 1.4 % (0-6); Hematocrit 36 % (35-47); Hemoglobin 12.8 g/dl (12.0-16.0); Lymphocyte % 17.6 % (25-47); Mean Corpuscular HGB Conc 36 g/dl (31-36); Mean Corpuscular Hemoglobin 31 pg (27-31); Mean Corpuscular Volume 88 fL (80-97); Mean Platelet Volume 7.3 um3 (7.4-10.4); Nucleated Red Blood Cells % 0.9; Platelet Count 359 10^3/ul (150-450); Red Blood Count 4.07 10^6/ul (4.00-5.40); Red Cell Distribution Width 17 % (10.5-15); White Blood Count 11.2 10^3/ul (3.5-10.8)
[2018-02-05 00:26] LABS: EGFR Non-African American 122.1 (>60)
--- NOTE | 2018-02-05 00:39 | ED ---
Abdominal Pain/Female - HPI Summary HPI Summary: This is judit Novak documenting for attending Dr. Jaxon De Paz MD. The patient is a 47 y/o F presenting to [facility] from [facility] c/o diffuse abd pain with sudden onset starting yesterday. The pain is described as a stabbing pain and pressure, rated 10/10 in severity. She additionally c/o back pain. She denies nausea, vomiting, diarrhea, fever. She has taken stool softener with eating because she often gets constipated, but she has not lost her appetite. She recently had a breast reduction surgery on 01/31, which she has been taking pain medication for that has helped with the pain. She has hx of right-sided hernias that were corrected through surgery. She has not had any other surgeries in the abd except for C-sections with childbirth. She is allergic to iohexol contrast. - History of Current Complaint Chief Complaint: EDAbdPain Stated Complaint: ABD PAIN Time Seen by Provider: 02/04/18 23:04 Hx Obtained From: Patient Hx Last Menstrual Period: 12/09/17 Onset/Duration: Sudden Onset, Lasting Days, Still Present Timing: Constant Severity Initially: Moderate Severity Currently: Severe Pain Intensity: 10 Pain Scale Used: 0-10 Numeric Location: Diffuse Radiates: No Character: Other: - stabbing, pressure Aggravating Factor(s): Food Alleviating Factor(s): Medications - pain management for recent surgery Associated Signs and Symptoms: Positive: Back Pain. Negative: Fever, Decreased Appetite, Nausea, Vomiting, Diarrhea Allergies/Adverse Reactions: Allergies Allergy/AdvReac Type Severity Reaction Status Date / Time iohexol Allergy Itching Verified 02/04/18 23:08 PMH/Surg Hx/FS Hx/Imm Hx Endocrine/Hematology History: Denies: Hx Diabetes, Hx Thyroid Disease Cardiovascular History: Denies: Hx Hypertension Respiratory History: Reports: Hx Asthma - NO CURRENT Sx OR MEDS, Other Respiratory Problems/Disorders - STATES BEING SOB WHEN WALKING IN EXTREME COLD Denies: Hx Chronic Obstructive Pulmonary Disease (COPD) GI History: Denies: Hx Ulcer Musculoskeletal History: Reports: Other Musculoskeletal History - RIGHT THUMB INJURY Denies: Hx Scoliosis Sensory History: Reports: Hx Contacts or Glasses - GLASSES WHEN DRIVING Denies: Hx Hearing Aid Opthamlomology History: Reports: Hx Contacts or Glasses - GLASSES WHEN DRIVING Neurological History: Denies: Hx Headaches, Other Neuro Impairments/Disorders - Surgical History Surgery Procedure, Year, and Place: 2006- tubal ligation. 2010 Hernia repair with mesh RIGHT [facility]GU[facility]AL [facility]. 2007 right hernia repair [place]. C SECTION X 3 1993 , 2003 2005. breast reduction. TUBAL REMOVED OVARY Hx Anesthesia Reactions: No - Immunization History Date of Tetanus Vaccine: utd Date of Influenza Vaccine: fall 2016 Infectious Disease History: No Infectious Disease History: Denies: Hx Clostridium Difficile, Hx Hepatitis, Hx Human Immunodeficiency Virus (HIV), Hx Shingles, Hx Tuberculosis, Hx Known/Suspected VRE, Hx Known/ Suspected VRSA, History Other Infectious Disease, Traveled Outside the [place] in Last 30 Days - Family History Known Family History: Positive: Hypertension, Respiratory Disease - asthma - Social History Alcohol Use: Occasionally Alcohol Amount: 6 JOCE WEEKLY Substance Use Type: Reports: None Smoking Status (MU): Never Smoked Tobacco Type: Cigarettes Length of Time of Smoking/Using Tobacco: quit 20 years ago Have You Smoked in the Last Year: No Review of Systems Negative: Fever Gastrointestinal: Negative - decreased appetite Positive: Abdominal Pain. Negative: Vomiting, Diarrhea, Nausea Positive: Other - back pain All Other Systems Reviewed And Are Negative: Yes Physical Exam - Summary Physical Exam Summary: Appearance: Well-appearing, Well-nourished, lying in bed comfortably Skin: Warm, dry, no obvious rash Eyes: sclera anicteric, no conjunctival pallor ENT: mucous membranes moist, pharynx appears normal Neck: Supple, nontender Respiratory: Clear to auscultation, no signs of respiratory distress Cardiovascular: Normal S1, S2. No murmurs. Normal distal pulses in tibial and radial bilaterally. Abdomen: Soft, LLQ tenderness without rebound or guarding, normal active bowel sounds present Musculoskeletal: Normal, Strength/ROM Intact Neurological: A&Ox3, awake and alert, mentation is normal, speech is fluent and appropriate Psychiatric: affect is normal, does not appear anxious or depressed Triage Information Reviewed: Yes Vital Signs On Initial Exam: Initial Vitals Temp Pulse Resp BP Pulse Ox 98.7 F 94 18 105/66 97 02/04/18 23:07 02/04/18 23:07 02/04/18 23:07 02/04/18 23:07 02/04/18 23:07 Vital Signs Reviewed: Yes Diagnostics - Vital Signs Vital Signs Temp Pulse Resp BP Pulse Ox 02/05/18 00:03 20 02/04/18 23:07 98.7 F 94 18 105/66 97 - Laboratory Lab Results: Lab Results 02/05/18 02/05/18 Range/Units 00:00 00:00 WBC 11.2 H (3.5-10.8) 10^3/ul RBC 4.07 (4.00-5.40) 10^6/ul Hgb 12.8 (12.0-16.0) g/dl Hct 36 (35-47) % MCV 88 (80-97) fL MCH 31 (27-31) pg MCHC 36 (31-36) g/dl RDW 17 H (10.5-15) % Plt Count 359 (150-450) 10^3/ul MPV 7.3 L (7.4-10.4) um3 Neut % (Auto) 73.9 (38-83) % Lymph % (Auto) 17.6 L (25-47) % [place] % (Auto) 6.4 (0-7) % Eos % (Auto) 1.4 (0-6) % Baso % (Auto) 0.7 (0-2) % Absolute Neuts (auto) 8.3 H (1.5-7.7) 10^3/ul Absolute Lymphs (auto) 2.0 (1.0-4.8) 10^3/ul Absolute Monos (auto) 0.7 (0-0.8) 10^3/ul Absolute Eos (auto) 0.2 (0-0.6) 10^3/ul Absolute Basos (auto) 0.1 (0-0.2) 10^3/ul Absolute Nucleated RBC 0.1 10^3/ul Nucleated RBC % 0.9 Sodium 135 (135-145) mmol/L Potassium 3.7 (3.5-5.0) mmol/L Chloride 99 L (101-111) mmol/L Carbon Dioxide 24 (22-32) mmol/L Anion Gap 12 H (2-11) mmol/L BUN 8 (6-24) mg/dL Creatinine 0.54 (0.51-0.95) mg/dL Est GFR ( Amer) 147.7 (>60) Est GFR (Non-Af Amer) 122.1 (>60) BUN/Creatinine Ratio 14.8 (8-20) Glucose 113 H (70-100) mg/dL Calcium 10.1 (8.6-10.3) mg/dL Total Bilirubin 1.50 H (0.2-1.0) mg/dL AST 27 (13-39) U/L ALT 47 (7-52) U/L Alkaline Phosphatase 105 H (34-104) U/L Total Protein 7.6 (6.4-8.9) g/dL Albumin 4.5 (3.2-5.2) g/dL Globulin 3.1 (2-4) g/dL Albumin/Globulin Ratio 1.5 (1-3) Lipase 25 (11.0-82.0) U/L Result Diagrams: 02/05/18 00:00 02/05/18 00:00 Lab Statement: Any lab studies that have been ordered have been reviewed, and results considered in the medical decision making process. - CT Abd/Pel CT CT Interpretation: No Acute Changes - 1. No CT findings to correlate with patient's symptomatology. 2. Expected findings post bilateral breast reconstruction. ED physician has reviewed this report. CT Interpretation Completed By: Radiologist Discharge - Sign-Out/Discharge Documenting (check all that apply): Patient Departure - Pt will be discharged home. - Discharge Plan Referrals: Arnoldo Hogue MD [Primary Care Provider] -
[2018-02-05 03:24] VITALS: BP 118/63
--- NOTE | 2018-02-05 07:40 | RAD ---
INDICATION: Left lower quadrant pain COMPARISON: May 10, 2013 TECHNIQUE: Noncontrast axial source images were acquired from the level hemidiaphragms to the symphysis pubis. Intravenous contrast was not given due to a reported contrast allergy. Oral contrast was not given at ED request. Lung bases: There is bibasilar infiltrate or atelectasis left greater than right. Liver: The liver is normal in size. Noncontrast imaging shows no evidence of a hepatic mass or ductal dilatation. Gallbladder: There are no calcified gallstones. There is no evidence of wall thickening or pericholecystic fluid.. Spleen: The spleen is normal in size. The noncontrast CT appearance is normal. Pancreas: Noncontrast imaging shows no pancreatic mass or ductal dilitation. Adrenal glands: No masses are identified. Kidneys/Bladder: There is no evidence of nephrolithiasis or CT evidence of hydronephrosis. Noncontrast imaging shows no evidence of a renal mass. The bladder is unremarkable.. Adenopathy: There is no evidence of intraperitoneal or retroperitoneal adenopathy. Evaluation is limited without oral contrast. Fluid collections: There are no free or localized fluid collections. Vessels: The aorta and iliac vessels are normal in caliber. There are no significant atherosclerotic changes. The IVC appears normal Pelvic organs: The uterus and adnexa appear normal GI tract: Evaluation of the bowel is limited without oral contrast. The stomach, small bowel, and lower GI tract appear grossly normal. There are no obstructive findings. The appendix is visualized and appears normal. Soft tissues: There are postoperative changes about each breast. There is a history of recent reduction mammoplasty which likely causes findings with this should be evaluated clinically. Osseous structures: There are no acute osseous findings. IMPRESSION: 1. Bibasilar airspace disease, likely atelectasis. 2. Chest wall changes most consistent with breast reconstruction surgery. Suggest clinical evaluation. 3. No CT findings to account for the patient's abdominal pain.
== END 2018-02-05 03:23 | disposition home or self-care (01) ==
LOC: ED 23:03
DX: R10.9 Unspecified abdominal pain (principal); M54.9 Dorsalgia, unspecified
CPT/HCPCS: 36415; 74176; 80053; 83690; 85025; 96374; 99283; J2270

== ENCOUNTER 2018-02-06 17:11 | Emergency (ER) | payer OTHER ==
[2018-02-06] MEDS ORDERED: NS 0.9% 1000 ML* 1,000 ML IV ONE (18:02)
[2018-02-06] MEDS ORDERED: Morphine VIAL* 10 MG/ML 1 ML VIAL IV ONE (18:02)
[2018-02-06] MEDS ORDERED: Ondansetron ODT TAB* 4 MG PO ONE (18:03)
[2018-02-06] MEDS ORDERED: Morphine INJ* 2 MG/ML 1 ML SYRINGE (TWO MG - NEW SYRINGE VERSION) ONE (18:11)
[2018-02-06 18:22] LABS: ABS Basophils 0 10^3/ul (0-0.2); ABS Eosinophils 0.1 10^3/ul (0-0.6); ABS Lymphocytes 1.1 10^3/ul (1.0-4.8); ABS Monocytes 0.8 10^3/ul (0-0.8); ABS Neutrophils 11.5 10^3/ul (1.5-7.7); ABS Nucleated RBC 0 10^3/ul; Eosinophil % 0.5 % (0-6); Hematocrit 31 % (35-47); Hemoglobin 11.1 g/dl (12.0-16.0); Lymphocyte % 8.2 % (25-47); Mean Corpuscular HGB Conc 36 g/dl (31-36); Mean Corpuscular Hemoglobin 31 pg (27-31); Mean Corpuscular Volume 88 fL (80-97); Mean Platelet Volume 7.2 um3 (7.4-10.4); Nucleated Red Blood Cells % 0; Platelet Count 325 10^3/ul (150-450); Red Blood Count 3.57 10^6/ul (4.00-5.40); Red Cell Distribution Width 16 % (10.5-15); White Blood Count 13.5 10^3/ul (3.5-10.8)
[2018-02-06] MEDS ORDERED: Morphine INJ* 2 MG/ML 1 ML SYRINGE (TWO MG - NEW SYRINGE VERSION) IV ONE (18:33)
[2018-02-06 18:39] LABS: EGFR Non-African American 124.7 (>60)
--- NOTE | 2018-02-06 19:06 | RAD ---
Indication: Abdominal pain. Flat plate of the abdomen demonstrates no free air. There is some small amount of stool in the descending colon. No dilated loops of bowel are noted. Psoas margins are intact. IMPRESSION: No definite obstruction is noted. There is some mild fecal stasis noted in the descending colon.
--- NOTE | 2018-02-06 19:54 | ED ---
Abdominal Pain/Female - HPI Summary HPI Summary: Complains of left lower quadrant pain 2 days, possible constipation 3 days. Pain described as sharp, stabbing, intermittent, worse with movement, associated with bilateral lower back pain. Patient states passing gas. Recent history of breast reduction, taking Tylenol and codeine. Seen here yesterday for same pain. CT abdomen/pelvis yesterday negative for acute process. Denies fever, cough, sore throat, CP, SOB, N/V/D, change in urine, vaginal symptoms. States medical history is none. Abdominal/pelvic surgical history is hernia repair on the right side abdomen, 2. States history of BTL. - History of Current Complaint Chief Complaint: EDAbdPain Stated Complaint: ABD PAIN/CONSTIPATION Time Seen by Provider: 02/06/18 17:28 Hx Obtained From: Patient Hx Last Menstrual Period: 12/09/17 Onset/Duration: Gradual Onset Timing: Intermittent Episode Lasting Severity Initially: Mild Severity Currently: Severe Pain Intensity: 9 Pain Scale Used: 0-10 Numeric Location: Discrete At: LLQ Radiates: Yes Radiates to: Back Character: Sharp Aggravating Factor(s): Movement Alleviating Factor(s): Nothing Associated Signs and Symptoms: Positive: Back Pain - Risk Factors Ectopic Risk Factor: Tubal Ligation Ovarian Torsion Risk Factor: Reproductive Age, Tubal Ligation Allergies/Adverse Reactions: Allergies Allergy/AdvReac Type Severity Reaction Status Date / Time iohexol Allergy Itching Verified 02/06/18 18:46 Home Medications: Home Medications Folic Acid TAB* [Folvite TAB*] 1 mg PO DAILY 02/06/18 [History Confirmed ] Iron 90 mg PO DAILY 02/06/18 [History Confirmed 02/06/18] Multivitamins/Minerals TAB* [Theragran/minerals TAB*] 1 tab PO DAILY 02/06/18 [ History Confirmed 02/06/18] sulfaSALAzine TAB* [Azulfidine TAB*] 500 mg PO TID 02/06/18 [History Confirmed 02/06/18] PMH/Surg Hx/FS Hx/Imm Hx Endocrine/Hematology History: Denies: Hx Anticoagulant Therapy, Hx Diabetes, Hx Thyroid Disease Cardiovascular History: Denies: Hx Hypertension Respiratory History: Reports: Hx Asthma - NO CURRENT Sx OR MEDS, Other Respiratory Problems/Disorders - STATES BEING SOB WHEN WALKING IN EXTREME COLD Denies: Hx Chronic Obstructive Pulmonary Disease (COPD) GI History: Denies: Hx Ulcer History: Denies: Hx Dialysis Musculoskeletal History: Reports: Other Musculoskeletal History - RIGHT THUMB INJURY Denies: Hx Scoliosis Sensory History: Reports: Hx Contacts or Glasses - GLASSES WHEN DRIVING Denies: Hx Hearing Aid Opthamlomology History: Reports: Hx Contacts or Glasses - GLASSES WHEN DRIVING Neurological History: Denies: Hx Headaches, Other Neuro Impairments/Disorders - Surgical History Surgery Procedure, Year, and Place: 2006- tubal ligation. 2009 Hernia repair with mesh [facility]AL [facility]. 2007 right hernia repair [place]. C SECTION X 3 1993 , 2003 2005. breast reduction. TUBAL REMOVED OV[facility] Hx Anesthesia Reactions: No - Immunization History Date of Tetanus Vaccine: utd Date of Influenza Vaccine: fall 2016 Infectious Disease History: No Infectious Disease History: Denies: Hx Clostridium Difficile, Hx Hepatitis, Hx Human Immunodeficiency Virus (HIV), Hx Shingles, Hx Tuberculosis, Hx Known/Suspected VRE, Hx Known/ Suspected VRSA, History Other Infectious Disease, Traveled Outside the [place] in Last 30 Days - Family History Known Family History: Positive: Hypertension, Respiratory Disease - asthma - Social History Alcohol Use: Occasionally Alcohol Amount: 6 JOCE WEEKLY Substance Use Type: Reports: None Smoking Status (MU): Never Smoked Tobacco Type: Cigarettes Length of Time of Smoking/Using Tobacco: quit 20 years ago Have You Smoked in the Last Year: No Review of Systems Constitutional: Negative Eyes: Negative ENT: Negative Cardiovascular: Negative Respiratory: Negative Positive: Abdominal Pain Genitourinary: Negative Musculoskeletal: Negative Skin: Negative Neurological: Negative Psychological: Normal All Other Systems Reviewed And Are Negative: Yes Physical Exam - Summary Physical Exam Summary: Tenderness diffusely across abdomen, slightly worse in left lower quadrant. Triage Information Reviewed: Yes Vital Signs On Initial Exam: Initial Vitals Pulse BP Pulse Ox 104 153/87 100 02/06/18 17:17 02/06/18 17:17 02/06/18 17:17 Vital Signs Reviewed: Yes Appearance: Positive: Well-Appearing Skin: Positive: Warm Head/Face: Positive: Normal Head/Face Inspection Eyes: Positive: Normal Neck: Positive: Supple Respiratory/Lung Sounds: Positive: Clear to Auscultation Cardiovascular: Positive: Normal Abdomen Description: Positive: Other: Musculoskeletal: Positive: Normal Neurological: Positive: Normal Psychiatric: Positive: Normal AVPU Assessment: Alert - Bradley Coma Scale Best Eye Response: 4 - Spontaneous Best Motor Response: 6 - Obeys Commands Best Verbal Response: 5 - Oriented Coma Scale Total: 15 Diagnostics - Vital Signs Vital Signs Temp Pulse Resp BP Pulse Ox 02/06/18 19:18 90 131/79 100 02/06/18 19:00 97 100 02/06/18 18:41 102 114/86 100 02/06/18 18:34 16 02/06/18 18:00 112 100 02/06/18 17:47 98 130/78 100 02/06/18 17:19 98.9 F 105 18 153/87 99 02/06/18 17:17 104 153/87 100 - Laboratory Lab Results: Lab Results 02/06/18 02/06/18 02/06/18 Range/Units 18:12 18:12 18:12 WBC 13.5 H (3.5-10.8) 10^3/ul RBC 3.57 L (4.00-5.40) 10^6/ul Hgb 11.1 L (12.0-16.0) g/dl Hct 31 L (35-47) % MCV 88 (80-97) fL MCH 31 (27-31) pg MCHC 36 (31-36) g/dl RDW 16 H (10.5-15) % Plt Count 325 (150-450) 10^3/ul MPV 7.2 L (7.4-10.4) um3 Neut % (Auto) 85.2 H (38-83) % Lymph % (Auto) 8.2 L (25-47) % [place] % (Auto) 5.9 (0-7) % Eos % (Auto) 0.5 (0-6) % Baso % (Auto) 0.2 (0-2) % Absolute Neuts (auto) 11.5 H (1.5-7.7) 10^3/ul Absolute Lymphs (auto) 1.1 (1.0-4.8) 10^3/ul Absolute Monos (auto) 0.8 (0-0.8) 10^3/ul Absolute Eos (auto) 0.1 (0-0.6) 10^3/ul Absolute Basos (auto) 0 (0-0.2) 10^3/ul Absolute Nucleated RBC 0 10^3/ul Nucleated RBC % 0 Sodium 137 (135-145) mmol/L Potassium 3.9 (3.5-5.0) mmol/L Chloride 103 (101-111) mmol/L Carbon Dioxide 23 (22-32) mmol/L Anion Gap 11 (2-11) mmol/L BUN 8 (6-24) mg/dL Creatinine 0.53 (0.51-0.95) mg/dL Est GFR ( Amer) 150.9 (>60) Est GFR (Non-Af Amer) 124.7 (>60) BUN/Creatinine Ratio 15.1 (8-20) Glucose 116 H (70-100) mg/dL Lactic Acid 1.9 (0.5-2.0) mmol/L Calcium 9.3 (8.6-10.3) mg/dL Total Bilirubin 1.20 H (0.2-1.0) mg/dL AST 20 (13-39) U/L ALT 36 (7-52) U/L Alkaline Phosphatase 102 (34-104) U/L C-Reactive Protein 57.20 H (<8.01) mg/L Total Protein 7.1 (6.4-8.9) g/dL Albumin 4.2 (3.2-5.2) g/dL Globulin 2.9 (2-4) g/dL Albumin/Globulin Ratio 1.4 (1-3) Lipase 16 (11.0-82.0) U/L Result Diagrams: 02/06/18 18:12 02/06/18 18:12 Lab Statement: Any lab studies that have been ordered have been reviewed, and results considered in the medical decision making process. - Radiology abdo Xray Interpretation: No Acute Changes Radiology Interpretation Completed By: Radiologist Abdominal Pain Fem Course/Dx - Course Course Of Treatment: Complains of left lower quadrant pain 2 days, possible constipation 3 days. Pain described as sharp, stabbing, intermittent, worse with movement, associated with bilateral lower back pain. Patient states passing gas. Recent history of breast reduction, taking Tylenol and codeine. Seen here yesterday for same pain. CT abdomen/pelvis yesterday negative for acute process. Denies fever, cough, sore throat, CP, SOB, N/V/D, change in urine, vaginal symptoms. States medical history is none. Abdominal/pelvic surgical history is hernia repair on the right side abdomen, 2. States history of BTL. Patient states she had a large bowel movement here in the ED, feels much better. Left lower quadrant pain from yesterday remains. Vital signs within normal limits and stable. Elevated white count from yesterday without other SIRS criteria. Labs and imaging otherwise unremarkable. CT abdomen and pelvis yesterday negative. X-ray abdomen and transvaginal ultrasound today essentially negative for cause of left lower quadrant pain. Patient has existing Rx for pain control due to recent breast reduction. Follow-up with GI - Diagnoses Provider Diagnoses: Left lower quadrant pain Discharge - Sign-Out/Discharge Documenting (check all that apply): Patient Departure - Discharge Plan Condition: Stable Disposition: HOME Patient Education Materials: Acute Abdominal Pain (ED) Referrals: Arnoldo Hogue MD [Primary Care Provider] - Jack Jacobsen MD [Medical Doctor] - Additional Instructions: Follow-up with Gastroenterology Dr. Jacobsen. Return to the ED for any new or worsening symptoms - Billing Disposition and Condition Condition: STABLE Disposition: Home
[2018-02-06 20:40] LABS: Urine Appearance Clear; Urine Blood Negative (Negative); Urine Color Straw; Urine Ketones Trace (Negative); Urine Protein Negative (Negative); Urine Specific Gravity 1.003 (1.010-1.030); Urine Urobilinogen Negative (Negative)
[2018-02-06] MEDS ORDERED: HYDROcodone/ACETAMIN 5-325 MG* 1 TAB PO ONE (22:18)
[2018-02-06 23:02] VITALS: BP 120/54
--- NOTE | 2018-02-07 06:54 | RAD ---
INDICATION: Left lower quadrant abdominal pain evaluate for ovarian torsion. COMPARISON: Comparison is made with a prior pelvic ultrasound from September 26, 2015. TECHNIQUE: Multiple real-time transabdominal and transvaginal images of the pelvis were obtained. FINDINGS: The uterus is enlarged and heterogeneous in echogenicity. The uterus measured 10.8 x 5.3 x 6.6 cm. The endometrial echo measured 0.8 cm in thickness. There is at least one discrete fibroid noted along the anterior body and fundus of the uterus measuring 1.8 x 1.4 x 2.6 cm. The right ovary measured 3.2 x 2.2 x 2.8 cm. The left ovary measured 2.8 x 2.0 x 2.8 cm. There is vascular flow within both ovaries. There is a 1.5 x 1.5 cm complex right ovarian cyst. No free intraperitoneal fluid is seen. IMPRESSION: 1. NO EVIDENCE FOR OVARIAN TORSION. 2. 1.5 CM COMPLEX RIGHT OVARIAN CYST. 3. FIBROID UTERUS.
== END 2018-02-06 22:45 | disposition home or self-care (01) ==
LOC: ED 17:11
DX: R10.32 Left lower quadrant pain (principal); N83.201 Unspecified ovarian cyst, right side; D25.9 Leiomyoma of uterus, unspecified; M54.5 Low back pain; Z82.49 Family history of ischemic heart disease and other diseases of the circulatory system; Z82.5 Family history of asthma and other chronic lower respiratory diseases
CPT/HCPCS: 36415; 74018; 76830; 80053; 81003; 83605; 83690; 85025; 86140; 96374; 99282; 99284; A9270-GY; J2270

== ENCOUNTER → 2018-03-20 18:34 | Emergency (ER) | payer OTHER ==
[2018-03-20 20:48] LABS: ABS Basophils 0 10^3/ul (0-0.2); ABS Eosinophils 0.2 10^3/ul (0-0.6); ABS Lymphocytes 1.7 10^3/ul (1.0-4.8); ABS Monocytes 0.4 10^3/ul (0-0.8); ABS Neutrophils 5.3 10^3/ul (1.5-7.7); ABS Nucleated RBC 0 10^3/ul; Eosinophil % 2.9 % (0-6); Hematocrit 34 % (35-47); Hemoglobin 12.3 g/dl (12.0-16.0); Lymphocyte % 22.3 % (25-47); Mean Corpuscular HGB Conc 36 g/dl (31-36); Mean Corpuscular Hemoglobin 30 pg (27-31); Mean Corpuscular Volume 83 fL (80-97); Mean Platelet Volume 7.6 um3 (7.4-10.4); Nucleated Red Blood Cells % 0; Platelet Count 298 10^3/ul (150-450); Red Blood Count 4.14 10^6/ul (4.00-5.40); Red Cell Distribution Width 17 % (10.5-15); White Blood Count 7.6 10^3/ul (3.5-10.8)
[2018-03-20 21:13] LABS: Urine Appearance Cloudy; Urine Blood Negative (Negative); Urine Color Straw; Urine Ketones Negative (Negative); Urine Protein Negative (Negative); Urine Red Blood Cell Trace(0-2/hpf) (Absent); Urine Specific Gravity 1.003 (1.010-1.030); Urine Urobilinogen Negative (Negative); Urine White Blood Cell Trace(0-5/hpf) (Absent)
[2018-03-20 21:21] LABS: EGFR Non-African American 110.2 (>60)
--- NOTE | 2018-03-20 23:00 | ED ---
Complex/Multi-Sys Presentation - HPI Summary HPI Summary: A 47 y/o female presents to ED c/o generalized sickness. Additionally c/o abdominal pain, headache and nausea reaching 8/10 in severity. As per triage, "Pt states her doctor sent her in for High liver enzymes and enlarged spleen. Pt c/o inflammation throughout her body". According to the patient, she has not been feeling like herself as she is normally active. Patient stated she has spleen and swollen liver. She had a breast reduction on 03/03/2018 at [facility]. Has appointment with GI doctor on 03/28/2018. - History Of Current Complaint Chief Complaint: EDGeneral Time Seen by Provider: 03/20/18 22:51 Hx Obtained From: Patient Onset/Duration: Still Present Timing: Constant Severity Currently: None Location: Negative Aggravating Factor(s): NOTHING Alleviating Factor(s): NOTHING - Allergies/Home Medications Allergies/Adverse Reactions: Allergies Allergy/AdvReac Type Severity Reaction Status Date / Time iohexol Allergy Severe Itching Verified 03/20/18 18:45 PMH/Surg Hx/FS Hx/Imm Hx Endocrine/Hematology History: Denies: Hx Anticoagulant Therapy, Hx Diabetes, Hx Thyroid Disease Cardiovascular History: Denies: Hx Hypertension Respiratory History: Reports: Hx Asthma - NO CURRENT Sx OR MEDS, Other Respiratory Problems/Disorders - STATES BEING SOB WHEN WALKING IN EXTREME COLD Denies: Hx Chronic Obstructive Pulmonary Disease (COPD) GI History: Denies: Hx Ulcer History: Denies: Hx Dialysis Musculoskeletal History: Reports: Other Musculoskeletal History - RIGHT THUMB INJURY Denies: Hx Scoliosis Sensory History: Reports: Hx Contacts or Glasses - GLASSES WHEN DRIVING Denies: Hx Hearing Aid Opthamlomology History: Reports: Hx Contacts or Glasses - GLASSES WHEN DRIVING Neurological History: Denies: Hx Headaches, Other Neuro Impairments/Disorders - Surgical History Surgery Procedure, Year, and Place: 2006- tubal ligation. 2010 Hernia repair with mesh RIGHT INGUINAL [facility] [place]. 2008 right hernia repair [place]. C SECTION X 3 1993 , 2003 2005. breast reduction. TUBAL REMOVED [facility] Hx Anesthesia Reactions: No - Immunization History Date of Tetanus Vaccine: utd Date of Influenza Vaccine: fall 2016 Infectious Disease History: No Infectious Disease History: Denies: Hx Clostridium Difficile, Hx Hepatitis, Hx Human Immunodeficiency Virus (HIV), Hx Shingles, Hx Tuberculosis, Hx Known/Suspected VRE, Hx Known/ Suspected VRSA, History Other Infectious Disease, Traveled Outside the [place] in Last 30 Days - Family History Known Family History: Positive: Hypertension, Respiratory Disease - asthma - Social History Alcohol Use: Occasionally Alcohol Amount: 6 JOCE WEEKLY Substance Use Type: Reports: None Smoking Status (MU): Never Smoked Tobacco Type: Cigarettes Length of Time of Smoking/Using Tobacco: quit 20 years ago Have You Smoked in the Last Year: No Review of Systems Negative: Fever Positive: Abdominal Pain, Nausea Positive: Headache All Other Systems Reviewed And Are Negative: Yes Physical Exam - Summary Physical Exam Summary: VITAL SIGNS: Reviewed. GENERAL: Patient is a well-developed and nourished female who is lying comfortable in the stretcher. Patient is not in any acute respiratory distress. HEAD AND FACE: No signs of trauma. No ecchymosis, hematomas or skull depressions. No sinus tenderness. EYES: PERRLA, EOMI x 2, No injected conjunctiva, no nystagmus. EARS: Hearing grossly intact. Ear canals and tympanic membranes are within normal limits. MOUTH: Oropharynx within normal limits. NECK: Supple, trachea is midline, no adenopathy, no JVD, no carotid bruit, no c- spine tenderness, neck with full ROM. CHEST: Symmetric, no tenderness at palpation. Post-breast reduction, patient has both breast covered. LUNGS: Clear to auscultation bilaterally. No wheezing or crackles. CVS: Regular rate and rhythm, S1 and S2 present, no murmurs or gallops appreciated. ABDOMEN: Soft, non-tender. No signs of distention. No rebound no guarding, and no masses palpated. Bowel sounds are normal. Abdominal exam is normal. EXTREMITIES: FROM in all major joints, no edema, no cyanosis or clubbing. NEURO: Alert and oriented x 3. No acute neurological deficits. Speech is normal and follows commands. SKIN: Dry and warm Triage Information Reviewed: Yes Vital Signs On Initial Exam: Initial Vitals Temp Pulse Resp BP Pulse Ox 99.2 F 90 17 135/65 100 03/20/18 18:42 03/20/18 18:42 03/20/18 18:42 03/20/18 18:42 03/20/18 18:42 Vital Signs Reviewed: Yes Diagnostics - Vital Signs Vital Signs Temp Pulse Resp BP Pulse Ox 03/20/18 20:46 98.6 F 86 18 121/63 100 03/20/18 18:42 99.2 F 90 17 135/65 100 - Laboratory Lab Results: Lab Results 03/20/18 03/20/18 03/20/18 Range/Units 20:30 20:37 20:37 WBC 7.6 (3.5-10.8) 10^3/ul RBC 4.14 (4.00-5.40) 10^6/ul Hgb 12.3 (12.0-16.0) g/dl Hct 34 L (35-47) % MCV 83 (80-97) fL MCH 30 (27-31) pg MCHC 36 (31-36) g/dl RDW 17 H (10.5-15) % Plt Count 298 (150-450) 10^3/ul MPV 7.6 (7.4-10.4) um3 Neut % (Auto) 69.4 (38-83) % Lymph % (Auto) 22.3 L (25-47) % [place] % (Auto) 5.1 (0-7) % Eos % (Auto) 2.9 (0-6) % Baso % (Auto) 0.3 (0-2) % Absolute Neuts (auto) 5.3 (1.5-7.7) 10^3/ul Absolute Lymphs (auto) 1.7 (1.0-4.8) 10^3/ul Absolute Monos (auto) 0.4 (0-0.8) 10^3/ul Absolute Eos (auto) 0.2 (0-0.6) 10^3/ul Absolute Basos (auto) 0 (0-0.2) 10^3/ul Absolute Nucleated RBC 0 10^3/ul Nucleated RBC % 0 Sodium 137 (135-145) mmol/L Potassium 3.6 (3.5-5.0) mmol/L Chloride 104 (101-111) mmol/L Carbon Dioxide 24 (22-32) mmol/L Anion Gap 9 (2-11) mmol/L BUN 8 (6-24) mg/dL Creatinine 0.59 (0.51-0.95) mg/dL Est GFR ( Amer) 133.4 (>60) Est GFR (Non-Af Amer) 110.2 (>60) BUN/Creatinine Ratio 13.6 (8-20) Glucose 96 (70-100) mg/dL Lactic Acid (0.5-2.0) mmol/L Calcium 9.6 (8.6-10.3) mg/dL Total Bilirubin 1.10 H (0.2-1.0) mg/dL AST 20 (13-39) U/L ALT 25 (7-52) U/L Alkaline Phosphatase 77 (34-104) U/L C-Reactive Protein 5.90 (<8.01) mg/L Total Protein 7.3 (6.4-8.9) g/dL Albumin 4.7 (3.2-5.2) g/dL Globulin 2.6 (2-4) g/dL Albumin/Globulin Ratio 1.8 (1-3) Lipase 33 (11.0-82.0) U/L Beta HCG, Quant < 0.60 mIU/mL Urine Color Straw Urine Appearance Cloudy Urine pH 5.0 (5-9) Ur Specific [place] 1.003 L (1.010-1.030) Urine Protein Negative (Negative) Urine Ketones Negative (Negative) Urine Blood Negative (Negative) Urine Nitrate Negative (Negative) Urine Bilirubin Negative (Negative) Urine Urobilinogen Negative (Negative) Ur Leukocyte Esterase Trace A (Negative) Urine WBC (Auto) Trace(0-5/hpf) (Absent) Urine RBC (Auto) Trace(0-2/hpf) (Absent) Ur Squamous Epith Cells Present A (Absent) Urine Bacteria 1+ A (Absent) Urine Glucose Negative (Negative) 03/20/18 Range/Units 20:37 WBC (3.5-10.8) 10^3/ul RBC (4.00-5.40) 10^6/ul Hgb (12.0-16.0) g/dl Hct (35-47) % MCV (80-97) fL MCH (27-31) pg MCHC (31-36) g/dl RDW (10.5-15) % Plt Count (150-450) 10^3/ul MPV (7.4-10.4) um3 Neut % (Auto) (38-83) % Lymph % (Auto) (25-47) % [place] % (Auto) (0-7) % Eos % (Auto) (0-6) % Baso % (Auto) (0-2) % Absolute Neuts (auto) (1.5-7.7) 10^3/ul Absolute Lymphs (auto) (1.0-4.8) 10^3/ul Absolute Monos (auto) (0-0.8) 10^3/ul Absolute Eos (auto) (0-0.6) 10^3/ul Absolute Basos (auto) (0-0.2) 10^3/ul Absolute Nucleated RBC 10^3/ul Nucleated RBC % Sodium (135-145) mmol/L Potassium (3.5-5.0) mmol/L Chloride (101-111) mmol/L Carbon Dioxide (22-32) mmol/L Anion Gap (2-11) mmol/L BUN (6-24) mg/dL Creatinine (0.51-0.95) mg/dL Est GFR ( Amer) (>60) Est GFR (Non-Af Amer) (>60) BUN/Creatinine Ratio (8-20) Glucose (70-100) mg/dL Lactic Acid 0.9 (0.5-2.0) mmol/L Calcium (8.6-10.3) mg/dL Total Bilirubin (0.2-1.0) mg/dL AST (13-39) U/L ALT (7-52) U/L Alkaline Phosphatase (34-104) U/L C-Reactive Protein (<8.01) mg/L Total Protein (6.4-8.9) g/dL Albumin (3.2-5.2) g/dL Globulin (2-4) g/dL Albumin/Globulin Ratio (1-3) Lipase (11.0-82.0) U/L Beta HCG, Quant mIU/mL Urine Color Urine Appearance Urine pH (5-9) Ur Specific [place] (1.010-1.030) Urine Protein (Negative) Urine Ketones (Negative) Urine Blood (Negative) Urine Nitrate (Negative) Urine Bilirubin (Negative) Urine Urobilinogen (Negative) Ur Leukocyte Esterase (Negative) Urine WBC (Auto) (Absent) Urine RBC (Auto) (Absent) Ur Squamous Epith Cells (Absent) Urine Bacteria (Absent) Urine Glucose (Negative) Result Diagrams: 03/20/18 20:37 03/20/18 20:37 Lab Statement: Any lab studies that have been ordered have been reviewed, and results considered in the medical decision making process. Complex Multi-Symp Course/Dx Course Of Treatment: A 47 y/o female presents to ED c/o generalized sickness. Additionally c/o abdominal pain, headache and nausea reaching 8/10 in severity. No laboratory scans were done. Blood work was done. It was discussed with patient her blood work as it is normal and no emergency. Patient has GI physician appointment already. Patient will be discharged with a diagnosis of hepatosplenomegaly. Patient is to follow up with her GI physician at her appointment soon. Patient is agreeable with this plan. - Diagnoses Provider Diagnoses: Hepatosplenomegaly Discharge - Sign-Out/Discharge Documenting (check all that apply): Patient Departure - DISCHARGE - Discharge Plan Condition: Stable Disposition: HOME Patient Education Materials: Acute Abdominal Pain (ED) Referrals: Arnoldo Hogue MD [Primary Care Provider] - Additional Instructions: FOLLOW UP WITH YOUR GI DOCTOR DURING APPOINTMENT ON 03/28/2018. RETURN TO ED FOR ANY NEW OR WORSENING SYMPTOMS. - Attestation Statements Document Initiated by Scribe: Yes Documenting Scribe: Dylan Smith Provider For Whom Shahram is Documenting (Include Credential): Todd Contreras MD Scribe Attestation: Dylan Mo, scribed for Todd Contreras MD on 03/20/18 at 2305.
[2018-03-20 23:15] VITALS: BP 138/72
== END | disposition home or self-care (01) ==
LOC: ED 18:34
DX: R16.2 Hepatomegaly with splenomegaly, not elsewhere classified (principal); R51 Headache; R11.0 Nausea; Z87.891 Personal history of nicotine dependence; Z88.8 Allergy status to other drugs, medicaments and biological substances
CPT/HCPCS: 36415; 80053; 81003; 81015; 83605; 83690; 84702; 85025; 86140; 87086; 99282

== ENCOUNTER 2018-05-06 23:20 | Emergency (ER) | payer OTHER ==
[2018-05-07] MEDS ORDERED: Ibuprofen TAB* 600 MG PO ONE (00:02)
[2018-05-07 00:25] LABS: ABS Basophils 0 10^3/ul (0-0.2); ABS Eosinophils 0.4 10^3/ul (0-0.6); ABS Lymphocytes 2.1 10^3/ul (1.0-4.8); ABS Monocytes 0.7 10^3/ul (0-0.8); ABS Neutrophils 6.5 10^3/ul (1.5-7.7); ABS Nucleated RBC 0 10^3/ul; Eosinophil % 3.8 % (0-6); Hematocrit 40 % (35-47); Hemoglobin 13.9 g/dl (12.0-16.0); Lymphocyte % 21.3 % (25-47); Mean Corpuscular HGB Conc 35 g/dl (31-36); Mean Corpuscular Hemoglobin 30 pg (27-31); Mean Corpuscular Volume 86 fL (80-97); Mean Platelet Volume 7.5 um3 (7.4-10.4); Nucleated Red Blood Cells % 0.1; Platelet Count 275 10^3/ul (150-450); Red Cell Distribution Width 18 % (10.5-15); White Blood Count 9.7 10^3/ul (3.5-10.8)
[2018-05-07 00:43] LABS: EGFR Non-African American 98.1 (>60)
[2018-05-07] MEDS ORDERED: HYDROcodone/ACETAMIN 5-325 MG* 1 TAB PO ONE (00:52)
[2018-05-07] MEDS ORDERED: Sulfamethox/Trimethoprim DS 800/160* TAB PO ONE (00:52)
--- NOTE | 2018-05-07 00:55 | ED ---
Skin Complaint - HPI Summary HPI Summary: Patient complains of redness and tenderness and discharge from bilateral breasts , nausea, subjective fever, lightheadedness 4 days. History of breast reduction surgery in January. Patient had follow-up with surgery 1 week ago, but symptoms occurred after. Patient denies trauma, cough, sore throat, CP, SOB, V/ D, abdominal pain, change in urine, change in BM. Medical history is none. - History of Current Complaint Chief Complaint: EDGeneral Time Seen by Provider: 05/06/18 23:51 Stated Complaint: POSSIBLE INFECTION ON BREAST Hx Obtained From: Patient Hx Last Menstrual Period: 12/09/17 Onset/Duration: Started Days Ago Timing: Constant Onset Severity: Severe Current Severity: Severe Pain Intensity: 8 Pain Scale Used: 0-10 Numeric Skin Location: Discrete, Chest Aggravating Symptom(s): Nothing Alleviating Symptom(s): Nothing Associated Signs & Symptoms: Nausea, Fever, Lightheadedness - Allergy/Home Medications Allergies/Adverse Reactions: Allergies Allergy/AdvReac Type Severity Reaction Status Date / Time iohexol Allergy Severe Itching Verified 03/20/18 18:45 PMH/Surg Hx/FS Hx/Imm Hx Endocrine/Hematology History: Denies: Hx Anticoagulant Therapy, Hx Diabetes, Hx Thyroid Disease Cardiovascular History: Denies: Hx Hypertension Respiratory History: Reports: Hx Asthma - NO CURRENT Sx OR MEDS, Other Respiratory Problems/Disorders - STATES BEING SOB WHEN WALKING IN EXTREME COLD Denies: Hx Chronic Obstructive Pulmonary Disease (COPD) GI History: Denies: Hx Ulcer History: Denies: Hx Dialysis Musculoskeletal History: Reports: Other Musculoskeletal History - RIGHT THUMB INJURY Denies: Hx Scoliosis Sensory History: Reports: Hx Contacts or Glasses - GLASSES WHEN DRIVING Denies: Hx Hearing Aid Opthamlomology History: Reports: Hx Contacts or Glasses - GLASSES WHEN DRIVING Neurological History: Denies: Hx Headaches, Other Neuro Impairments/Disorders - Surgical History Surgery Procedure, Year, and Place: 2006- tubal ligation. 2010 Hernia repair with mesh RIGHT INGUINAL [facility]. 2008 right hernia repair [place]. C SECTION X 3 1993 , 2003 2005. breast reduction. TUBAL REMOVED [facility] Hx Anesthesia Reactions: No - Immunization History Date of Tetanus Vaccine: utd Date of Influenza Vaccine: fall 2016 Infectious Disease History: No Infectious Disease History: Denies: Hx Clostridium Difficile, Hx Hepatitis, Hx Human Immunodeficiency Virus (HIV), Hx Shingles, Hx Tuberculosis, Hx Known/Suspected VRE, Hx Known/ Suspected VRSA, History Other Infectious Disease, Traveled Outside the [place] in Last 30 Days - Family History Known Family History: Positive: Hypertension, Respiratory Disease - asthma - Social History Alcohol Use: Occasionally Alcohol Amount: 6 JOCE WEEKLY Substance Use Type: Reports: None Smoking Status (MU): Never Smoked Tobacco Type: Cigarettes Length of Time of Smoking/Using Tobacco: quit 20 years ago Have You Smoked in the Last Year: No Review of Systems Positive: Fever Eyes: Negative ENT: Negative Cardiovascular: Negative Respiratory: Negative Positive: Nausea Genitourinary: Negative Musculoskeletal: Negative Skin: Other Neurological: Negative Psychological: Normal All Other Systems Reviewed And Are Negative: Yes Physical Exam - Summary Physical Exam Summary: No active discharge from bilateral breasts, however there is crusted yellow non- odorous matter on pads patient is placed off her breast. Erythema surrounding bilateral areole was. Tenderness to palpation bilaterally around the area of fairly old is. Surgical incisions appear to be healing well at clean and dry and intact. Breasts otherwise appear normal. No abscess noted with palpation. Triage Information Reviewed: Yes Vital Signs On Initial Exam: Initial Vitals Temp Pulse Resp BP Pulse Ox 98.5 F 95 20 146/66 99 05/06/18 23:22 05/06/18 23:22 05/06/18 23:22 05/06/18 23:22 05/06/18 23:22 Vital Signs Reviewed: Yes Appearance: Positive: Well-Appearing Skin: Positive: Warm Head/Face: Positive: Normal Head/Face Inspection Eyes: Positive: Normal Neck: Positive: Supple Respiratory/Lung Sounds: Positive: Clear to Auscultation Cardiovascular: Positive: Normal Abdomen Description: Positive: Nontender Musculoskeletal: Positive: Normal Neurological: Positive: Normal Psychiatric: Positive: Normal AVPU Assessment: Alert - Axel Coma Scale Best Eye Response: 4 - Spontaneous Best Motor Response: 6 - Obeys Commands Best Verbal Response: 5 - Oriented Coma Scale Total: 15 Diagnostics - Vital Signs Vital Signs Temp Pulse Resp BP Pulse Ox 05/06/18 23:22 98.5 F 95 20 146/66 99 - Laboratory Lab Results: Lab Results 05/07/18 05/07/18 05/07/18 Range/Units 00:14 00:14 00:14 WBC 9.7 (3.5-10.8) 10^3/ul RBC 4.60 (4.00-5.40) 10^6/ul Hgb 13.9 (12.0-16.0) g/dl Hct 40 (35-47) % MCV 86 (80-97) fL MCH 30 (27-31) pg MCHC 35 (31-36) g/dl RDW 18 H (10.5-15) % Plt Count 275 (150-450) 10^3/ul MPV 7.5 (7.4-10.4) um3 Neut % (Auto) 67.3 (38-83) % Lymph % (Auto) 21.3 L (25-47) % [place] % (Auto) 7.3 H (0-7) % Eos % (Auto) 3.8 (0-6) % Baso % (Auto) 0.3 (0-2) % Absolute Neuts (auto) 6.5 (1.5-7.7) 10^3/ul Absolute Lymphs (auto) 2.1 (1.0-4.8) 10^3/ul Absolute Monos (auto) 0.7 (0-0.8) 10^3/ul Absolute Eos (auto) 0.4 (0-0.6) 10^3/ul Absolute Basos (auto) 0 (0-0.2) 10^3/ul Absolute Nucleated RBC 0 10^3/ul Nucleated RBC % 0.1 Sodium 141 (135-145) mmol/L Potassium 3.9 (3.5-5.0) mmol/L Chloride 106 (101-111) mmol/L Carbon Dioxide 25 (22-32) mmol/L Anion Gap 10 (2-11) mmol/L BUN 11 (6-24) mg/dL Creatinine 0.65 (0.51-0.95) mg/dL Est GFR ( Amer) 118.7 (>60) Est GFR (Non-Af Amer) 98.1 (>60) BUN/Creatinine Ratio 16.9 (8-20) Glucose 109 H (70-100) mg/dL Lactic Acid 1.2 (0.5-2.0) mmol/L Calcium 9.2 (8.6-10.3) mg/dL Total Bilirubin 0.90 (0.2-1.0) mg/dL AST 18 (13-39) U/L ALT 24 (7-52) U/L Alkaline Phosphatase 77 (34-104) U/L C-Reactive Protein 4.31 (<8.01) mg/L Total Protein 7.4 (6.4-8.9) g/dL Albumin 4.8 (3.2-5.2) g/dL Globulin 2.6 (2-4) g/dL Albumin/Globulin Ratio 1.8 (1-3) Lipase 47 (11.0-82.0) U/L Result Diagrams: 05/07/18 00:14 05/07/18 00:14 Lab Statement: Any lab studies that have been ordered have been reviewed, and results considered in the medical decision making process. Course/Dx - Course Course Of Treatment: Patient complains of redness and tenderness and discharge from bilateral breasts, nausea, subjective fever, lightheadedness 4 days. History of breast reduction surgery in January. Patient had follow-up with surgery 1 week ago, but symptoms occurred after. Patient denies trauma, cough, sore throat, CP, SOB, V/D, abdominal pain, change in urine, change in BM. Medical history is none. Physical exam:No active discharge from bilateral breasts, however there is crusted yellow non-odorous matter on pads patient is placed off her breast. Erythema surrounding bilateral areole was. Tenderness to palpation bilaterally around the area of fairly old is. Surgical incisions appear to be healing well at clean and dry and intact. Breasts otherwise appear normal. No abscess noted with palpation. Vital signs within normal limits. Labs unremarkable. Rx for Bactrim. Rx for hydrocodone. Follow-up with surgery - Diagnoses Provider Diagnoses: Cellulitis Discharge - Sign-Out/Discharge Documenting (check all that apply): Patient Departure - Discharge Plan Condition: Stable Disposition: HOME Prescriptions: HYDROcodone/ACETAMIN 5-325 MG* [[place] 5-325 TAB*] 1 tab PO BID 3 Days #6 tab MDD 2 tabs Promethazine TAB* [Phenergan TAB*] 25 mg PO Q8H PRN 5 Days #15 tab PRN Reason: Nausea Sulfamethox/Trimethoprim DS* [Bactrim DS 800/160 TAB*] 1 tab PO BID 10 Days #20 tab Patient Education Materials: Cellulitis (ED) Referrals: Arnoldo Hogue MD [Primary Care Provider] - - Billing Disposition and Condition Condition: STABLE Disposition: Home
[2018-05-07] MEDS ORDERED: Ondansetron ODT TAB* 4 MG PO ONE (00:57)
[2018-05-07 01:41] VITALS: BP 120/63
== END 2018-05-07 01:39 | disposition home or self-care (01) ==
LOC: ED 23:20
DX: N61.0 Mastitis without abscess (principal); R11.0 Nausea; R50.9 Fever, unspecified; R42 Dizziness and giddiness; Z91.041 Radiographic dye allergy status; Z87.891 Personal history of nicotine dependence
CPT/HCPCS: 36415; 80053; 83605; 83690; 85025; 86140; 87040; 99282; A9270-GY

== ENCOUNTER 2019-03-30 21:46 | Emergency (ER) | payer OTHER ==
--- NOTE | 2019-03-30 22:12 | ED ---
HPI Chest Pain - HPI Summary HPI Summary: This pt is a 48 Y/O F presenting to [facility] with a CC of Epigastric CP that has been present for a few weeks and is stated as stabbing. She states that the pain radiates to the R side of her back when she coughs. She rates the pain an 8 /10 in severity. She also states that she has been having dizziness that has been present since the onset. She states that at the onset she has been having hot and cold flashes. She states that she has not passed out from the dizziness but states that she has to sit down after the onset. She states that she has a dry cough which aggravates the pain. She states that she gets out of breath walking up and down her stairs at home. She denies any fevers, diaphoresis, abdominal pain, N/V, and headaches. She has no alleviating factors. She has no pertinent PMHx. - History of Current Complaint Chief Complaint: EDChestPainROMI Time Seen by Provider: 03/30/19 22:01 Hx Obtained From: Patient Hx Last Menstrual Period: 12/09/17 Onset/Duration: Started Weeks Ago - 3, Still Present, Worse Since Timing: Constant Initial Severity: Moderate Current Severity: Severe Pain Intensity: 8 Pain Scale Used: 0-10 Numeric Chest Pain Location: Mid Sternal Chest Pain Radiates: Yes Chest Pain Radiates To:: Back - R side Character: Sharp/Stabbing Aggravating Factor(s): Exertion - States that going up and down her stairs at home causes her to become SOB, Other: - coughing increases pain Alleviating Factor(s): Nothing Associated Signs and Symptoms: Positive: Chest Pain - epigastric, radiates to R back, Dizziness, Shortness of Breath, Chills - hot/cold flashes, Nonproductive Cough, Back Pain. Negative: Headaches, Fever, Diaphoresis, Nausea, Abdominal Pain, Vomiting - Allergy/Home Medications Allergies/Adverse Reactions: Allergies Allergy/AdvReac Type Severity Reaction Status Date / Time iohexol Allergy Severe Itching Verified 03/30/19 22:02 Home Medications: Home Medications NK [No Home Medications Reported] 03/30/19 [History Confirmed 03/30/19] PMH/Surg Hx/FS Hx/Imm Hx Previously Healthy: Yes Endocrine/Hematology History: Denies: Hx Anticoagulant Therapy, Hx Diabetes, Hx Thyroid Disease Cardiovascular History: Denies: Hx Hypertension Respiratory History: Reports: Hx Asthma, Other Respiratory Problems/Disorders - STATES BEING SOB WHEN WALKING IN EXTREME COLD Denies: Hx Chronic Obstructive Pulmonary Disease (COPD) GI History: Denies: Hx Ulcer History: Denies: Hx Dialysis Musculoskeletal History: Reports: Other Musculoskeletal History - RIGHT THUMB INJURY Denies: Hx Scoliosis Sensory History: Reports: Hx Contacts or Glasses - GLASSES WHEN DRIVING Denies: Hx Hearing Aid Opthamlomology History: Reports: Hx Contacts or Glasses - GLASSES WHEN DRIVING Neurological History: Denies: Hx Headaches, Other Neuro Impairments/Disorders - Surgical History Surgery Procedure, Year, and Place: 2006- tubal ligation. 2009 Hernia repair with mesh RIGHT [facility]GU[facility]AL [facility]. 2007 [place] hernia repair [place]. C SECTION X 3 1993 , 2003 2005. breast reduction. TUBAL REMOVED [facility] Hx Anesthesia Reactions: No - Immunization History Date of Tetanus Vaccine: utd Date of Influenza Vaccine: no influenze vaccine this year Infectious Disease History: No Infectious Disease History: Denies: Hx Clostridium Difficile, Hx Hepatitis, Hx Human Immunodeficiency Virus (HIV), Hx Shingles, Hx Tuberculosis, Hx Known/Suspected VRE, Hx Known/ Suspected VRSA, History Other Infectious Disease, Traveled Outside the [place] in Last 30 Days - Family History Known Family History: Positive: Hypertension, Respiratory Disease - asthma, Other - positive: bronchitis - Social History Alcohol Use: Occasionally Alcohol Amount: 6 JOCE WEEKLY Substance Use Type: Reports: None Smoking Status (MU): Former Smoker Type: Cigarettes Length of Time of Smoking/Using Tobacco: quit 20 years ago Have You Smoked in the Last Year: No Review of Systems Positive: Chills - hot/cold flashes . Negative: Fever, Skin Diaphoresis Positive: Chest Pain - epigastric, radiates to R back Positive: Shortness Of Breath, Cough - nonproductive Negative: Abdominal Pain, Vomiting, Nausea Positive: Other - R sided back pain Negative: Headache All Other Systems Reviewed And Are Negative: Yes Physical Exam - Summary Physical Exam Summary: Appearance: Well-appearing, Well-nourished, lying in bed comfortably Skin: Warm, dry, no obvious rash Eyes: sclera anicteric, no conjunctival pallor ENT: mucous membranes moist, pharynx appears normal Neck: Supple, nontender Respiratory: Clear to auscultation, no signs of respiratory distress Cardiovascular: Normal S1, S2. No murmurs. Normal distal pulses in tibial and radial bilaterally. Abdomen: Soft, nontender, normal active bowel sounds present Musculoskeletal: Normal, Strength/ROM Intact Neurological: A&Ox3, awake and alert, mentation is normal, speech is fluent and appropriate Psychiatric: affect is normal, does not appear anxious or depressed Triage Information Reviewed: Yes Vital Signs On Initial Exam: Initial Vitals Temp Pulse Resp BP Pulse Ox 98.2 F 81 18 139/74 100 03/30/19 21:52 03/30/19 21:52 03/30/19 21:52 03/30/19 21:52 03/30/19 21:52 Vital Signs Reviewed: Yes Diagnostics - Vital Signs Vital Signs Temp Pulse Resp BP Pulse Ox 03/30/19 21:52 98.2 F 81 18 139/74 100 - Laboratory Result Diagrams: 03/30/19 22:24 03/30/19 22:24 Lab Statement: Any lab studies that have been ordered have been reviewed, and results considered in the medical decision making process. - Radiology CXR Radiology Interpretation Completed By: ED Physician Summary of Radiographic Findings: No acute process. Pending offical report. - EKG 2149 Cardiac Rate: NL - 81 BPM EKG Rhythm: Sinus Rhythm ST Segment: Normal Ectopy: None Summary of EKG Findings: NSR at 81 BPM, P waves, QRS complex, and T waves are within normal limits, T waves and intervals are normal, no ischemic changes. This is a normal [place] [address]/30/19. Chest Pain Course/Dx - Course Course Of Treatment: This pt is a 48 Y/O F presenting to [facility] with a CC of Epigastric CP that has been present for a few weeks and is stated as stabbing. She states that the pain radiates to the R side of her back when she coughs. She rates the pain an 8/10 in severity. She also states that she has been having dizziness that has been present since the onset. Her PE found no abnormalities. Her EKG at 0 showed a NSR at 81 BPM, P waves, QRS complex, and T waves are within normal limits, T waves and intervals are normal, no ischemic changes. This is a normal EKG. CXR shows no acute processes. She has no abnormal lab results that give cause for concern. She will be discharged home with a Dx of chest wall pain. - Diagnoses Provider Diagnoses: Chest wall pain Discharge ED - Sign-Out/Discharge Documenting (check all that apply): Patient Departure - discharge Patient Received Moderate/Deep Sedation with Procedure: No - Discharge Plan Condition: Good Disposition: HOME Patient Education Materials: Chest Wall Pain (ED) Referrals: [facility] [Outside] Additional Instructions: The testing we did tonight did not show any sign of a serious cause of your pain , such as heart disease or a lung problem. The pain is likely coming from the ribs and associated muscles in the chest wall, and should eventually subside. Treatment focuses on pain relief, and medications like ibuprofen and naprosyn can be helpful. - Billing Disposition and Condition Condition: GOOD Disposition: Home - Attestation Statements Document Initiated by Shahram: Yes Documenting Scribe: Ike Love Provider For Whom Shahram is Documenting (Include Credential): Jaxon De Paz MD Scribe Attestation: Ike Mo scribed for Jaxon De Paz MD on 03/31/19 at 0642. Scribe Documentation Reviewed: Yes Provider Attestation: The documentation as recorded by the Ike spain accurately reflects the service I personally performed and the decisions made by , Jaxon De Paz MD Status of Scribe Document: Viewed
[2019-03-30 22:46] LABS: INR 0.95 (0.82-1.09)
[2019-03-30 22:49] LABS: ALT 46 U/L (7-52); AST 38 U/L (13-39); Albumin/Globulin Ratio 2.2 (1-3); Alkaline Phosphatase 90 U/L (34-104); Anion Gap 10 mmol/L (2-11); BUN/Creatinine Ratio 11.7 (8-20); Blood Urea Nitrogen 12 mg/dL (6-24); CO2 Carbon Dioxide 25 mmol/L (22-32); Calcium 9.8 mg/dL (8.6-10.3); Chloride 103 mmol/L (101-111); EGFR African American 69.8 (>60); EGFR Non-African American 57.7 (>60); Globulin 2.3 g/dL (2-4); Glucose 102 mg/dL (70-100); Sodium 138 mmol/L (135-145); Total Protein 7.3 g/dL (6.4-8.9)
[2019-03-30 22:56] LABS: HCG Pregnancy < 0.60 mIU/mL
[2019-03-30 23:05] LABS: ABS Eosinophils 0.2 10^3/ul (0-0.6); ABS Lymphocytes 1.6 10^3/ul (1.0-4.8); ABS Monocytes 0.5 10^3/ul (0-0.8); ABS Neutrophils 4.7 10^3/ul (1.5-7.7); Eosinophil % 2.9 %; Hematocrit 39 % (35-47); Lymphocyte % 23.2 %; Mean Corpuscular HGB Conc 36 g/dL (31-36); Mean Corpuscular Hemoglobin 32 pg (27-31); Mean Corpuscular Volume 88 fL (80-97); Mean Platelet Volume 7.8 fL (7.4-10.4); Nucleated Red Blood Cells % 0.1; Platelet Count 276 10^3/uL (150-450); Red Blood Count 4.42 10^6 /uL (3.70-4.87); Red Cell Distribution Width 15 % (10-15); White Blood Count 7.1 10^3/uL (3.5-10.8)
[2019-03-31 00:26] VITALS: BP 145/77
== END 2019-03-31 00:32 | disposition home or self-care (01) ==
LOC: ED 21:46
DX: R07.89 Other chest pain (principal); R06.02 Shortness of breath; M54.9 Dorsalgia, unspecified; Z87.891 Personal history of nicotine dependence; J45.909 Unspecified asthma, uncomplicated
CPT/HCPCS: 36415; 71046; 80053; 84484; 84702; 85025; 85379; 85610; 93005; 99282

== ENCOUNTER 2019-05-03 12:58 | Emergency (ER) | payer OTHER ==
[2019-05-03 13:22] VITALS: BP 125/62
--- NOTE | 2019-05-03 13:29 | UC ---
Skin Complaint HPI - HPI Summary HPI Summary: Patient is a 49-year-old female who presents to the urgent care with a chief complaint of a rash in her face. She has a history rash in both cheeks and forehead. She reports this started this morning. She has no other symptoms. She does have any swelling of the lips, tongue, or feeling like her throat is closing. She denies any fever or chills and she has no other complaints. - History of Current Complaint Chief Complaint: UCRash Time Seen by Provider: 05/03/19 13:18 Stated Complaint: RASH Hx Last Menstrual Period: 12/09/17 ?: No Onset/Duration: Sudden Onset Skin Exposure Onset/Duration: Hours Ago Timing: Constant Onset Severity: Mild Pain Intensity: 5 - Allergy/Home Medications Allergies/Adverse Reactions: Allergies Allergy/AdvReac Type Severity Reaction Status Date / Time iohexol Allergy Severe Itching Verified 05/03/19 13:12 PMH/Surg Hx/FS Hx/Imm Hx Previously Healthy: Yes Other History Of: Negative For: Anticoagulant Therapy - Surgical History Surgical History: None Surgery Procedure, Year, and Place: 2006- tubal ligation. 2009 Hernia repair with mesh RIGHT [facility]GU[facility]AL [facility]. 2007 [place] her[place]. C SECTION X 3 1993 , 2003 2005. breast reduction. TUBAL REMOVED [facility] - Family History Known Family History: Positive: Hypertension, Respiratory Disease - asthma, Other - positive: bronchitis - Social History Alcohol Use: Occasionally Alcohol Amount: 6 JOCE WEEKLY Substance Use Type: None Smoking Status (MU): Former Smoker Type: Cigarettes Length of Time of Smoking/Using Tobacco: quit 20 years ago Have You Smoked in the Last Year: No When Did the Patient Quit Smoking/Using Tobacco: 1993 Household Exposure Type: Cigarettes - Immunization History Most Recent Influenza Vaccination: 2017 Review of Systems All Other Systems Reviewed And Are Negative: Yes Constitutional: Positive: Negative Skin: Positive: Rash Eyes: Positive: Negative ENT: Positive: Negative Respiratory: Positive: Negative Cardiovascular: Positive: Negative Gastrointestinal: Positive: Negative Genitourinary: Positive: Negative Motor: Positive: Negative Neurovascular: Positive: Negative Musculoskeletal: Positive: Negative Neurological: Positive: Negative Psychological: Positive: Negative Is Patient Immunocompromised?: No Physical Exam - Summary Physical Exam Summary: VITAL SIGNS: Reviewed. GENERAL: Patient is a well developed and nourished female who is lying comfortably in the stretcher. Patient is not in any acute respiratory distress. HEAD AND FACE: No signs of trauma. No ecchymosis, hematomas or skull depressions. No sinus tenderness. EYES: PERRLA, EOMI x 2, No injected conjunctiva, no nystagmus. EARS: Hearing grossly intact. Ear canals and tympanic membranes are within normal limits. MOUTH: Oropharynx within normal limits. NECK: Supple, trachea is midline, no adenopathy, no JVD, no carotid bruit, no c- spine tenderness, neck with full ROM. CHEST: Symmetric, no tenderness at palpation LUNGS: Clear to auscultation bilaterally. No wheezing or crackles. CVS: Regular rate and rhythm, S1 and S2 present, no murmurs or gallops appreciated. ABDOMEN: Soft, non-tender. No signs of distention. No rebound no guarding, and no masses palpated. Bowel sounds are normal. EXTREMITIES: FROM in all major joints, no edema, no cyanosis or clubbing. NEURO: Alert and oriented x 3. No acute neurological deficits. Speech is normal and follows commands. SKIN: Dry and warm. Small areas of eryythema and hives. No vesicular rash, no tenderness at palpation. Positive blanching. Triage Information Reviewed: Yes Appearance: Well-Appearing Vital Signs: Initial Vital Signs Temp 98.6 F 05/03/19 13:19 Pulse 71 05/03/19 13:19 Resp 18 05/03/19 13:19 BP 125/62 05/03/19 13:19 Pulse Ox 100 05/03/19 13:19 Vital Signs Reviewed: Yes Course/Dx - Course Course Of Treatment: It seems that the patient has dermatitis. I do not believe that the patient has shingles. However, I gave instructions if she develops any vesicular rash to return to the urgent care or the emergency department immediately. At this point the patient will be given a prescription for Benadryl and topical steroids patient understands and agrees. - Diagnoses Provider Diagnosis: Dermatitis Discharge ED - Sign-Out/Discharge Documenting (check all that apply): Patient Departure All imaging exams completed and their final reports reviewed: No Studies - Discharge Plan Condition: Stable Disposition: HOME Prescriptions: diPHENhydraMINE PO* [Benadryl PO 25 MG TAB*] 25 mg PO TID PRN #30 tab PRN Reason: Itching Triamcinolone 0.1% CREAM(NF) [Kenalog Cream 0.1%(NF)] 1 applic TOPICAL BID #1 tube Patient Education Materials: Dermatitis (ED) Referrals: Marco Antonio Jackson MD [Primary Care Provider] - Additional Instructions: F/U with PCP in 2-3 days - Billing Disposition and Condition Condition: STABLE Disposition: Home
== END 2019-05-03 13:27 | disposition home or self-care (01) ==
LOC: UCEAST 12:58
DX: L30.9 Dermatitis, unspecified (principal); Z88.8 Allergy status to other drugs, medicaments and biological substances; Z87.891 Personal history of nicotine dependence
CPT/HCPCS: 99212; G0463

== ENCOUNTER 2019-07-04 16:14 | Emergency (ER) | payer OTHER ==
[2019-07-04] MEDS ORDERED: GuaiFENesin DM 100 mg/10 mg in 5 ML UDC PO ONE (16:57)
--- NOTE | 2019-07-04 16:58 | ED ---
Influenza-Like Illness - HPI Summary HPI Summary: This patient is a 49 year old F presenting to [facility] with a chief complaint of sore throat, fever since 3 days ago. Pt reports it began 3 days ago with coughing, and then her throat became sore. Per triage, the patient rates the pain 8/10 in severity. Patient reports SANCHEZ, CP , coughing, body aches, dry hacking cough, pain in back with coughing, and chills. Pt reports not taking any medication today, but taking Nyquil previously. - History of Current Complaint Chief Complaint: EDFluSymptoms Time Seen by Provider: 07/04/19 16:33 Hx Obtained From: Patient Onset/Duration: Gradual Onset, Lasting Days, Still Present Severity: Severe Associated Signs & Symptoms: Fever, Cough, Sore Throat, Headache - Allergy/Home Medications Allergies/Adverse Reactions: Allergies Allergy/AdvReac Type Severity Reaction Status Date / Time iohexol Allergy Severe Itching Verified 07/04/19 16:19 Home Medications: Home Medications traZODone TAB* [Desyrel TAB*] 50 mg PO BEDTIME 07/04/19 [History Confirmed 07/04] PMH/Surg Hx/FS Hx/Imm Hx Endocrine/Hematology History: Denies: Hx Anticoagulant Therapy, Hx Diabetes, Hx Thyroid Disease Cardiovascular History: Denies: Hx Hypertension Respiratory History: Reports: Hx Asthma, Other Respiratory Problems/Disorders - STATES BEING SOB WHEN WALKING IN EXTREME COLD Denies: Hx Chronic Obstructive Pulmonary Disease (COPD) GI History: Denies: Hx Ulcer History: Denies: Hx Dialysis Musculoskeletal History: Reports: Other Musculoskeletal History - RIGHT THUMB INJURY Denies: Hx Scoliosis Sensory History: Reports: Hx Contacts or Glasses - GLASSES WHEN DRIVING Denies: Hx Hearing Aid Opthamlomology History: Reports: Hx Contacts or Glasses - GLASSES WHEN DRIVING Neurological History: Denies: Hx Headaches, Other Neuro Impairments/Disorders - Surgical History Surgery Procedure, Year, and Place: 2006- tubal ligation. 2010 Hernia repair with mesh RIGHT [facility]GU[facility]AL [facility]. 2008 [place] hernia [place]. C SECTION X 3 1993 , 2003 2005. breast reduction. TUBAL REMOVED [facility] Hx Anesthesia Reactions: No - Immunization History Date of Tetanus Vaccine: utd Date of Influenza Vaccine: none Infectious Disease History: No Infectious Disease History: Denies: Hx Clostridium Difficile, Hx Hepatitis, Hx Human Immunodeficiency Virus (HIV), Hx Shingles, Hx Tuberculosis, Hx Known/Suspected VRE, Hx Known/ Suspected VRSA, History Other Infectious Disease, Traveled Outside the [place] in Last 30 Days - Family History Known Family History: Positive: Hypertension, Respiratory Disease - asthma, Other - positive: bronchitis - Social History Alcohol Use: Occasionally Alcohol Amount: 6 JOCE WEEKLY Substance Use Type: Reports: None Smoking Status (MU): Former Smoker Type: Cigarettes Length of Time of Smoking/Using Tobacco: quit 20 years ago Have You Smoked in the Last Year: No Review of Systems Positive: Fever, Chills Positive: Sore Throat Positive: Chest Pain Positive: Other - back pain with cough Positive: Headache All Other Systems Reviewed And Are Negative: Yes Physical Exam - Summary Physical Exam Summary: Appearance: The patient is well-nourished in no acute distress and in no acute pain. Skin: The skin is warm and dry, and skin color reflects adequate perfusion. HEENT: The head is normocephalic and atraumatic. The pupils are equal and reactive. The conjunctivae are clear and without drainage. Nares congestion. Mouth reveals moist mucous membranes, and the throat is without erythema and exudate. The external ears are intact. The ear canals are patent and without drainage. The tympanic membranes are intact. Neck: The neck is supple with full range of motion and non-tender. There are no carotid bruits. There is no neck vein distension. Respiratory: Chest is non-tender. Lungs are clear to auscultation and breath sounds are symmetrical and equal. Paroxysmal cough Cardiovascular: Heart is regular rate and rhythm. There is no murmur or rub auscultated. There is no peripheral edema and pulses are symmetrical and equal. Abdomen: The abdomen is soft and non-tender. There are normal bowel sounds heard in all four quadrants and there is no organomegaly palpated. Musculoskeletal: There is no back tenderness noted. Extremities are non-tender with full range of motion. There is good capillary refill. There is no peripheral edema or calf tenderness elicited. Neurological: Patient is alert and oriented to person, place and time. The patient has symmetrical motor strength in all four extremities. Cranial nerves are grossly intact. Deep tendon reflexes are symmetrical and equal in all four extremities. Psychiatric: The patient has an appropriate affect and does not exhibit any anxiety or depression. Triage Information Reviewed: Yes Vital Signs On Initial Exam: Initial Vitals Temp Pulse Resp BP Pulse Ox 97.8 F 83 17 136/87 97 07/04/19 16:17 07/04/19 16:17 07/04/19 16:17 07/04/19 16:17 07/04/19 16:17 Vital Signs Reviewed: Yes Procedures - Sedation Patient Received Moderate/Deep Sedation with Procedure: No Diagnostics - Vital Signs Vital Signs Temp Pulse Resp BP Pulse Ox 07/04/19 16:17 97.8 F 83 17 136/87 97 - Laboratory Lab Statement: Any lab studies that have been ordered have been reviewed, and results considered in the medical decision making process. Re-Evaluation - Re-Evaluation First Eval Re-Evaluation Time: 18:29 Comment: Discussed results and plan of care with pt. Flu Symptom Course/Dx - Course Course Of Treatment: This appears to be a viral URI. Influenza swabs were negative. She got significant relief here with some guaifenesin and codeine and I will treat her with the same as an outpatient. - Diagnoses Provider Diagnoses: Upper respiratory infection Discharge ED - Sign-Out/Discharge Documenting (check all that apply): Patient Departure - Discharge - Discharge Plan Condition: Stable Disposition: HOME Prescriptions: Codeine Phosphate/Guaifenesin [Guaiatussin AC Liquid] 5 ml PO Q4HR #120 ml MDD 30 cc Patient Education Materials: Upper Respiratory Infection (ED) Referrals: Marco Antonio Jackson MD [Primary Care Provider] - 3 Days Additional Instructions: Follow up with primary care provider within 2-3 days. Return to ED for any new or worsening symptoms. - Billing Disposition and Condition Condition: STABLE Disposition: Home - Attestation Statements Document Initiated by Shahram: Yes Documenting Scribe: Ute Macedo Provider For Whom Shahram is Documenting (Include Credential): Jaxon Ramos MD Scribe Attestation: Ute Mo, scribed for Jaxon Ramos MD on 07/05/19 at 1103. Scribe Documentation Reviewed: Yes Provider Attestation: The documentation as recorded by the Ute spain accurately reflects the service I personally performed and the decisions made by me, Jaxon Ramos MD Status of Scribe Document: Viewed
[2019-07-04 17:31] LABS: Influenza A Molecular NEGATIVE (Negative); Influenza B Molecular NEGATIVE (Negative)
[2019-07-04 18:46] VITALS: BP 110/85
== END 2019-07-04 18:44 | disposition home or self-care (01) ==
LOC: ED 16:14
DX: J06.9 Acute upper respiratory infection, unspecified (principal); Z87.891 Personal history of nicotine dependence; Z98.51 Tubal ligation status; Z79.899 Other long term (current) drug therapy; Z91.041 Radiographic dye allergy status
CPT/HCPCS: 99282; A9270-GY